=== PATIENT | female | born 1935 | race Caucasian/White ===

== ENCOUNTER 2017-10-06 15:44 | Inpatient (IN) ==
[2017-10-06] MEDS ORDERED: IOPAMIDOL 100 ML BOTTLE IV ONE (15:45)
[2017-10-06 16:38] LABS: Mean Cell Volume 94.6 fL (80.0-100.0); Mean Corpuscular HGB Conc 33.6 g/dL (31.0-36.0); Mean Corpuscular Hemoglobin 31.7 pg (26.0-34.0); Platelet Count 253 K/mcL (140-440); RBC 4.48 M/mcL (4.00-5.20); Red Cell Distribution Width 12.9 % (11.5-14.5)
--- NOTE | 2017-10-06 16:57 | Cat Scan Report ---
CLINICAL INFORMATION: Hyponatremia. Bloated feeling. TECHNIQUE: 80 mL intravenous contrast material injected. Oral contrast material was given. Axial images to the chest, abdomen, pelvis COMPARISON: Chest CT scan dated 05/28/2017 FINDINGS: CHEST: As described previously there are 4 noncalcified pulmonary parenchymal nodules: 5 mm superior segment left lower lobe, image 45 4 mm left upper lobe, image 47 3 mm left lower lobe, image 52 4 mm subpleural right lower lobe, image 64 These nodules are stable. As described previously Fleischner Society recommendations: Low risk patient no follow-up necessary, high risk patient [address] follow-up recommended. Lungs are otherwise negative. There is centrilobular emphysema with upper lobe predominance. Appearance is consistent with smoking history. No other parenchymal mass. No parenchymal consolidation. No pneumonia. No honeycombing or bronchiectasis. There is atherosclerotic disease. There is severe coronary artery calcification. There is calcified atherosclerotic disease in the thoracic aorta. There is calcified plaque in the descending thoracic aorta with mural thrombus. Descending thoracic aorta is ectatic and measures 3.3 cm in maximum cross-sectional diameter. No asymmetry thoracic aortic aneurysm. 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 As passes was steered to the esophagus. No pathologic hilar or mediastinal lymphadenopathy. No axillary adenopathy. No thoracic compression fractures. There is multilevel degenerative disc disease. No sternal or rib fractures. No lytic lesions. ABDOMEN, PELVIS: Severe calcified atherosclerotic disease. There is dilatation of the abdominal aorta. Maximum cross-sectional dimensions are 3.5 x 2.8 cm in the infrarenal abdominal aorta. There is calcified plaque at the origins of the renal arteries, superior mesenteric artery, and celiac trunk. There is probable left renal artery stenosis. There is mild narrowing at the origin of the celiac trunk although this is probably not hemodynamically significant Negative liver. No focal intrahepatic abnormality. Normal spleen and liver contour. No evidence for cirrhosis. No ascites. Gallbladder is present. No calcified gallstones. No intrahepatic bile duct dilatation. Common bile duct measures 6 mm. Pancreas is negative. No pancreatic mass. No peripancreatic abnormality. Negative spleen. No splenomegaly. Normal enhancement of the splenic and portal veins. Negative adrenal glands. Kidneys are negative. No solid or cystic renal mass. No hydronephrosis. No obstructing or nonobstructing calculi. No evidence for pyelonephritis. There are diverticula in the sigmoid colon. No CT evidence for diverticulitis. No pericolonic inflammatory change. No detectable colonic mass. No appendicitis. The stomach is mildly distended and contrast filled. There is no gastric outlet obstruction. There is contrast material throughout the small bowel. No small bowel dilatation. No mechanical small bowel obstruction. Uterus is negative. No detectable uterine mass. No adnexal mass. No free intraperitoneal fluid. No pneumoperitoneum. No intra-abdominal abscess. No pneumatosis. No biliary or portal venous gas. Multilevel degenerative disc disease. Severe degenerative disc narrowing at L1-2, L2-3, L3-4, L5-S1. No lumbar compression fractures. There is mild L5-S1 anterolisthesis secondary to facet arthropathy. No sacral insufficiency fracture. Pelvis and hips are negative IMPRESSION: 1. Small noncalcified pulmonary parenchymal nodules are unchanged since 05/28/2017. As described previously placed or Society recommendations are for a [address] follow up in a high risk patient 2. Severe calcified coronary artery disease. Extensive atherosclerotic disease throughout the aorta. For renal abdominal aortic dilatation with maximum dimensions of 3.5 x 2.8 cm. Incidental note is made of an aberrant right subclavian artery 3. Mildly distended contrast-filled stomach. No gastric outlet obstruction 4. Severe multilevel degenerative disc disease 5. Negative kidneys 6. Diverticulosis. No significant diverticulitis 7. Centrilobular emphysema Interpreted and Authenticated by: Mayur Mulligan 10/06/17
[2017-10-06 17:16] LABS: ALT/SGPT 22 U/l (0-40); Albumin 4.5 gm/dL (3.2-5.2); Albumin/Globulin Ratio 1.5 (1.0-2.3); Alkaline Phosphatase 87 U/L (39-117); Blood Urea Nitrogen 18 mg/dl (8-23)
[2017-10-06 17:21] LABS: Band Neutrophils % 1 % (0-10); Lymphocytes % 21 % (15-49); Monocytes % (Manual) 13 % (1-12); Platelet Estimate NORMAL (NORMAL); RBC Morphology NORMAL (NORMAL); Segmented Neutrophils % 62 % (38-78)
[2017-10-06] MEDS ORDERED: 0.9 % SODIUM CHLORIDE 1,000 ML IV ONE (17:27)
[2017-10-06] MEDS ORDERED: 0.9 % SODIUM CHLORIDE 1,000 ML IV SCH (17:30)
--- NOTE | 2017-10-06 17:30 | Emergency Department Note ---
Weakness HPI - General Chief complaint: Weakness Stated complaint: low sodium, bloated Time Seen by Provider: 10/06/17 15:59 Source: patient, family Mode of arrival: ambulatory Limitations: no limitations - History of Present Illness HPI Narrative: 82-year-old female who was recently treated for UTI on 10/02/2017 with Bactrim. Also has recently started Donepezil for dementia. Since then she has been having some diarrhea. Overall feeling weak and having some stomach cramps as well as some paresthesia bilaterally. She initially then went to Dr. Matthews who is going to order a CT scan of the abdomen and pelvis for her but on getting a Chem-8 was found to have very low sodium and so was sent to the ER. - Related Data Home Medications Medication Instructions Recorded Confirmed clobetasol 0.05 % scalp solution 1 applic TOPICAL BIDP PRN 05/03/15 10/06/17 Flaxseed Oil [Flax Seed Oil] 2,000 mg PO QPMCC 09/12/15 10/06/17 aspirin 81 mg tablet,delayed 81 mg PO QDAY 05/12/17 10/06/17 release latanoprost 0.005 % eye drops 1 drp OPHTHALMIC QDAY 05/12/17 10/06/17 Previous Rx's Medication Instructions Recorded clotrimazole-betamethasone 1 1 applic TOPICAL BID #15 g 07/06/16 %-0.05 % topical cream alprazolam 0.5 mg tablet See Dose Instructions PO .COMPLEX 08/23/17 #60 tab chlorthalidone 25 mg tablet 25 mg PO QDAY #90 tab 08/24/17 irbesartan 300 mg tablet 300 mg PO QDAY #90 tab 08/24/17 donepezil 5 mg tablet 5 mg PO QHS #60 tab 10/06/17 pravastatin 20 mg tablet 20 mg PO QHS #60 tab 10/06/17 Allergies Allergy/AdvReac Type Severity Reaction Status Date / Time Amoxicillin Allergy Unknown Unknown Verified 10/06/17 15:51 ciprofloxacin [From Cipro] AdvReac Mild GI upset Verified 10/06/17 19:18 hydrocodone [From [place]] AdvReac Mild Facial itch Verified 10/06/17 19:18 amlodipine AdvReac Other Verified 10/06/17 15:51 Review of Systems All systems ED: reviewed and negative except as stated. Past Medical History - Past Medical History Attestation: Yes: The following information was validated with the patient. Medical history: Reports: arthritis, coronary artery disease, dementia, hypertension, peripheral artery disease, other (Lung nodules) Surgical history ED: Reports: appendectomy, knee replacement, orthopedic, other (Reverse shoulder), tonsillectomy - Social History smoking status: Former smoker Physical Exam No acute distress resting comfortably able to answer some questions but defers to her daughter for others. Some cognitive deficit noted. Normocephalic atraumatic. Conjunctive are clear sclerae nonicteric. No nasal discharge or congestion. Oropharynx is pink and moist. Neck is supple without lymphadenopathy thyromegaly or carotid bruit. Heart is regular rate and rhythm no murmur appreciated. Lungs clear to auscultation bilaterally without wheezes rales rhonchi or respiratory distress. Abdomen is soft but mildly tender diffusely. Hyperactive bowel sounds. No peritoneal signs or guarding. No pedal edema. +2 radial pulse. Osteoarthritic changes to bilateral hands. Alert Limitations: no limitations Course Vital Signs Temperature 98.0 F 10/06/17 15:45 Pulse Rate 67 10/06/17 15:45 Respiratory Rate 18 10/06/17 15:45 Pulse Oximetry (%) 96 10/06/17 15:45 Temperature 98.5 F 10/07/17 04:00 Pulse Rate 65 10/07/17 04:00 Respiratory Rate 14 10/07/17 04:00 Blood Pressure 107/67 10/07/17 04:00 Pulse Oximetry (%) 97 10/07/17 04:00 Weakness - Lab Data Lab results reviewed: Yes I reviewed the patient's lab results. Result diagrams: 10/07/17 03:54 10/07/17 03:54 Lab Results 10/06/17 10/06/17 10/06/17 Range/Units 16:13 16:13 16:13 WBC 6.7 (4.5-11.0) K/mcL RBC 4.48 (4.00-5.20) M/mcL Hgb 14.2 (12.0-15.0) g/dL Hct 42.4 (36.0-48.0) % MCV 94.6 (80.0-100.0) fL MCH 31.7 (26.0-34.0) pg MCHC 33.6 (31.0-36.0) g/dL RDW 12.9 (11.5-14.5) % Plt Count 253 (140-440) K/mcL MPV 7.8 (7.4-10.4) fL Total Counted 100 Seg Neutrophils % 62 (38-78) % Band Neutrophils % 1 (0-10) % Lymphocytes % 21 (15-49) % Monocytes % (Manual) 13 H (1-12) % Reactive Lymphocytes 3 H (0-2) % Platelet Estimate Normal (NORMAL) RBC Morphology Normal (NORMAL) VBG Lactic Acid 1.5 (0.5-2.2) mmol/L Sodium 116 L* (133-145) mmol/L Potassium 3.8 (3.3-5.1) mmol/L Chloride 76 L (96-108) mmol/L Carbon Dioxide 22 (22-30) mmol/L Anion Gap 18.0 H (8-16) BUN 18 (8-23) mg/dl Creatinine 1.1 (0.6-1.1) mg/dl GFR Calculation 47 Glucose 109 H (70-105) mg/dL Osmolality (280-300) mOSM/kg Calcium 9.8 (8.6-10.4) mg/dl Total Bilirubin 0.6 (0.0-1.0) mg/dL AST 31 (0-37) U/l ALT 22 (0-40) U/l Alkaline Phosphatase 87 (39-117) U/L Total Protein 7.5 (5.9-8.4) gm/dL Albumin 4.5 (3.2-5.2) gm/dL Globulin 3.0 (2.2-3.7) gm/dL Albumin/Globulin Ratio 1.5 (1.0-2.3) TSH (0.27-5.01) uIU/ml Urine Color Urine Appearance Urine pH (5.0-9.0) Ur Specific [place] (1.000-1.035) Urine Protein (NEG) mg/dL Urine Glucose (UA) (NEG) mg/dL Urine Ketones (NEG) mg/dL Urine Occult Blood (<0.03) mg/dL Urine Nitrate (NEG) Urine Bilirubin (NEG) mg/dL Urine Urobilinogen (NEG) mg/dL Ur Leukocyte Esterase (NEG) /uL Urine RBC (0-1) /hpf Urine WBC (0-4) /hpf Ur Squamous Epith Cells (0-4) /hpf Ur Transition Epith Cell (0-2) /hpf Urine Bacteria (0) /hpf Hyaline Casts (0-2) /lpf Urine Mucus (0) /hpf Ur Culture Indicated? Urine Osmolality (80-1000) mOsm/kg Ur Random Sodium mmol/L 10/06/17 10/06/17 10/06/17 Range/Units 16:13 17:10 17:10 WBC (4.5-11.0) K/mcL RBC (4.00-5.20) M/mcL Hgb (12.0-15.0) g/dL Hct (36.0-48.0) % MCV (80.0-100.0) fL MCH (26.0-34.0) pg MCHC (31.0-36.0) g/dL RDW (11.5-14.5) % Plt Count (140-440) K/mcL MPV (7.4-10.4) fL Total Counted Seg Neutrophils % (38-78) % Band Neutrophils % (0-10) % Lymphocytes % (15-49) % Monocytes % (Manual) (1-12) % Reactive Lymphocytes (0-2) % Platelet Estimate (NORMAL) RBC Morphology (NORMAL) VBG Lactic Acid (0.5-2.2) mmol/L Sodium (133-145) mmol/L Potassium (3.3-5.1) mmol/L Chloride (96-108) mmol/L Carbon Dioxide (22-30) mmol/L Anion Gap (8-16) BUN (8-23) mg/dl Creatinine (0.6-1.1) mg/dl GFR Calculation Glucose (70-105) mg/dL Osmolality 246 L (280-300) mOSM/kg Calcium (8.6-10.4) mg/dl Total Bilirubin (0.0-1.0) mg/dL AST (0-37) U/l ALT (0-40) U/l Alkaline Phosphatase (39-117) U/L Total Protein (5.9-8.4) gm/dL Albumin (3.2-5.2) gm/dL Globulin (2.2-3.7) gm/dL Albumin/Globulin Ratio (1.0-2.3) TSH 4.13 (0.27-5.01) uIU/ml Urine Color Yellow Urine Appearance Hazy Urine pH 7.0 (5.0-9.0) Ur Specific [place] 1.033 (1.000-1.035) Urine Protein Neg (NEG) mg/dL Urine Glucose (UA) Negative (NEG) mg/dL Urine Ketones Neg (NEG) mg/dL Urine Occult Blood 0.03 A (<0.03) mg/dL Urine Nitrate Neg (NEG) Urine Bilirubin Neg (NEG) mg/dL Urine Urobilinogen Neg (NEG) mg/dL Ur Leukocyte Esterase 500 A (NEG) /uL Urine RBC 11 H (0-1) /hpf Urine WBC 117 H (0-4) /hpf Ur Squamous Epith Cells 13 H (0-4) /hpf Ur Transition Epith Cell 2 (0-2) /hpf Urine Bacteria 0 (0) /hpf Hyaline Casts 1 (0-2) /lpf Urine Mucus Few (0) /hpf Ur Culture Indicated? No Urine Osmolality 402 (80-1000) mOsm/kg Ur Random Sodium 57 mmol/L - Radiology Data Radiology results reviewed: Yes I reviewed the patient's radiology results. CT scan of the chest abdomen pelvis with contrast shows no acute findings however there are several smaller stable chronic findings. See report for full report for that Disposition Pt seen by PER DIEM REGISTERED NURSE/PA only: No Clinical Impression: Hyponatremia Summary: Found to have significant symptomatic hyponatremia likely from her diuretic however unclear if other medicines helped out in this regard. Patient requires inpatient care to treat this so I discussed the case with Dr. Miguel who agreed to accept patient in transfer. He advised him to start slow normal saline and he would workup as an inpatient Disposition: Xfer As Inpt ([facility]) Condition: Fair
[2017-10-06 17:35] LABS: Appearance,Urine HAZY; Bacteria,Urine 0 /hpf (0); Bilirubin,Urine NEG (NEG); Color,Urine YELLOW; Glucose,Urine (UA) NEGATIVE (NEG); Leukocyte Esterase,Urine 500 /uL (NEG); Mucus,Urine FEW /hpf (0); Protein,Urine NEG (NEG); Specific Gravity,Urine 1.033 (1.000-1.035); Urine Blood 0.03 mg/dL (<0.03); Urine Hyaline Cast 1 /lpf (0-2); Urine RBC 11 /hpf (0-1); Urine Squamous Epithelial Cell 13 /hpf (0-4); Urine Transitional Epi Cells 2 /hpf (0-2); Urine WBC 117 /hpf (0-4); Urobilinogen,Urine NEG (NEG)
--- NOTE | 2017-10-06 18:03 | Internal Med History&Physical ---
Medical - H&P: [facility] Patient information: Note initiated : 10/06/17 at 6:01 pm Service Date, if different from initiated Date: [] Patient: Stephanie Mckeon a 82 y/o F admitted on for low sodium, bloated. Chief Complaint: [] Chief complaint: weakness confusion History of present illness: Ms. Mckeon is a 82 year old F who presents to [facility] ER with symptoms of increasing weakness, lower extremity cramps, headaches, abdominal bloating and confusion which has worsened over the last 24 hours. Patient has been fairly independent living alone. She is frequently visited by her son Ish and daughter eder. Per history patient has progressively gotten weaker over the last few days along with associated lower extremity cramps restricting her ability to perform ADLs. Patient was evaluated on 10/02 at urgent care due to increasing urinary frequency and dysuria. She was discharged on for UTI. Cultures revealed gram-positive cocci. However since discharge her symptoms have persisted with dysuria and increased frequency and associated weakness prompting her to return to ER today. She however denied associated fever cough headache photophobia, chest pain shortness of breath, rash, joint swelling . She has been slightly dizzy and lightheaded. Initial workup revealed sodium 116. Negative CT abdomen and pelvis chest. UA revealed pyuria. Hospitalist service consulted for admission evaluation in light of symptomatically hyponatremia. Review of systems 10 point review of system was performed and is negative except as discussed above Medical - H&P: [facility] Medical history: Medical History (Last Reviewed 08/18/17 @ 14:38 by Evonne Ahmadi RN) Encounter for long-term current use of high risk medication (Acute) Inflammatory osteoarthritis (Chronic) Encounter for Health Maintenance Examination in Adult (Chronic) History of tobacco use (Chronic) Peripheral vascular disease (Chronic) Palpitations (Chronic) Osteoporosis screening (Chronic) Hypertension (Chronic) Herpes zoster (Chronic) Hematuria (Chronic) Glaucoma (Chronic) Dermatitis (Chronic) Situational depression (Chronic) Degenerative arthritis (Chronic) Colon polyps (Chronic) Cerebrovascular disease (Chronic 06/28/14) Carotid bruit (Chronic 01/19/14) Back pain (Chronic) Situational anxiety (Chronic) Surgical history: Past Surgical History (Last Reviewed 08/18/17 @ 14:38 by Evonne Ahmadi RN) H/O colonoscopy (Acute 05/09/07) History of bilateral knee arthroplasty (Chronic) 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) S/P appendectomy (Chronic) S/P tonsillectomy (Chronic) Pertinent family history: Family History (Last Reviewed 08/18/17 @ 14:38 by Evonne Ahmadi RN) Mother Malignant neoplasm of breast Grandmother Malignant neoplasm of breast Sister History of coronary artery stent placement Father Cerebrovascular accident (CVA), Onset Age: 62 Other Hypertension Social history: household members: alone housing: house lives independently: Yes marital status: occupational status: retired smoking status: Former smoker quit date: 05/17/99 pack-years: 30 alcohol intake frequency: 2+ drinks per day substance use type: does not use Medical - H&P: Meds Home Medications Medication Instructions Recorded Confirmed Type clobetasol 0.05 % scalp solution 1 applic TOPICAL BIDP PRN 05/03/15 10/06/17 History Flaxseed Oil [Flax Seed Oil] 2,000 mg PO QPMCC 09/12/15 10/06/17 History clotrimazole-betamethasone 1 1 applic TOPICAL BID #15 g 07/06/16 10/06/17 Rx %-0.05 % topical cream aspirin 81 mg tablet,delayed 81 mg PO QDAY 05/12/17 10/06/17 History release latanoprost 0.005 % eye drops 1 drp OPHTHALMIC QDAY 05/12/17 10/06/17 History alprazolam 0.5 mg tablet See Dose Instructions PO .COMPLEX 08/23/17 10/06/17 Rx #60 tab chlorthalidone 25 mg tablet 25 mg PO QDAY #90 tab 08/24/17 10/06/17 Rx irbesartan 300 mg tablet 300 mg PO QDAY #90 tab 08/24/17 10/06/17 Rx donepezil 5 mg tablet 5 mg PO QHS #60 tab 10/06/17 10/06/17 Rx pravastatin 20 mg tablet 20 mg PO QHS #60 tab 10/06/17 10/06/17 Rx Allergies Allergy/AdvReac Type Severity Reaction Status Date / Time Amoxicillin Allergy Unknown Unknown Verified 10/06/17 15:51 ciprofloxacin [From Cipro] AdvReac Mild GI upset Verified 10/06/17 19:18 hydrocodone [From [place]] AdvReac Mild Facial itch Verified 10/06/17 19:18 amlodipine AdvReac Other Verified 10/06/17 15:51 Medical - H&P: Exam - Constitutional Vitals: Temp Pulse Resp BP Pulse Ox 98.0 F 70 14 165/80 97 10/06/17 15:45 10/06/17 17:13 10/06/17 17:13 10/06/17 17:13 10/06/17 17:13 General appearance: no acute distress Exam: Fatigue lethargic eye movements and symmetric oral cavity dry No ear discharge Neck right-sided carotid bruit S1 and S2 iregular rhythm ESM grade 1 Diminished breath sounds bases Abdomen soft nontender nondistended Lower extremity trace edema no joint swelling and erythema Skin no suspicious lesion Psych lethargic but cooperative No hallucination Neuro nonfocal Medical - H&P: Reslt - Labs CBC & Chem 7: 10/07/17 03:54 10/07/17 03:54 Labs: Short CBC 10/06/17 Range/Units 16:13 WBC 6.7 (4.5-11.0) K/mcL Hgb 14.2 (12.0-15.0) g/dL Hct 42.4 (36.0-48.0) % Plt Count 253 (140-440) K/mcL BMP 10/06/17 16:13 Sodium 116 L* Potassium 3.8 Chloride 76 L Carbon Dioxide 22 BUN 18 Creatinine 1.1 Glucose 109 H Calcium 9.8 Liver Function 10/06/17 Range/Units 16:13 Total Bilirubin 0.6 (0.0-1.0) mg/dL AST 31 (0-37) U/l ALT 22 (0-40) U/l Alkaline Phosphatase 87 (39-117) U/L Albumin 4.5 (3.2-5.2) gm/dL Urine 10/06/17 Range/Units 17:10 Urine Color Yellow Urine Appearance Hazy Urine pH 7.0 (5.0-9.0) Ur Specific [place] 1.033 (1.000-1.035) Urine Protein Neg (NEG) mg/dL Urine Glucose (UA) Negative (NEG) mg/dL Medical - H&P: A/P (1) Hyponatremia with decreased serum osmolality Current visit: Yes Status: Acute 82-year-old admitted with euvolemic hyponatremia * Acute symptomatic hyponatremia-likely secondary to thiazide induced natriuresis. Sodium 116 baseline 135, however rule out SIADH, every 4 hour sodium check, urine serum osmolarity and urine sodium. Start gentle sodium replacement. Check TSH. Admitted to telemetry for seizures/arrhythmia watch * Complicated Urinary tract infection-start antibiotic coverage. Gram-positive cocci on cultures from 10/02 * Acute change in mental status associated weakness secondary to combination of complicated UTI and symptomatic hyponatremia. Inpatient admission and close monitoring * History of dementia continue donepezil * History of glaucoma continue latanoprost * Hypertension continue ARB/chlorthalidone * Anxiety disorder continue alprazolam * Hyperlipidemia on statin * History of PVD/CVA * Full code Plan * Inpatient Telemetry admit * Fluid restriction * Every 4 hour sodium checks * Urine/serum osmolarity/urine sodium * TSH * Antibiotic coverage * If persistent hyponatremia consider discontinuing chlorthalidone
[2017-10-06] MEDS ORDERED: ALPRAZolam 0.5 MG TABLET PO SCH (18:40)
[2017-10-06] MEDS ORDERED: ONDANSETRON 4 MG/2 ML VIAL IV PRN (18:40)
[2017-10-06] MEDS ORDERED: MAGNESIUM SULFATE 2 GM/50 ML BAG IV PRN (18:40)
[2017-10-06] MEDS ORDERED: ACETAMINOPHEN 325 MG TABLET PO PRN (18:40)
[2017-10-06] MEDS ORDERED: POTASSIUM CHLORIDE 20 MEQ PACKET PO PRN (18:40)
[2017-10-06] MEDS ORDERED: CLOBETASOL TOPICAL PRN (18:40)
[2017-10-06] MEDS ORDERED: guaiFENesin/CODEINE 10 ML UDC PO PRN (18:40)
[2017-10-06] MEDS ORDERED: ACETAMINOPHEN 1,000 MG/100 ML BOTTLE IV PRN (18:40)
[2017-10-06 19:17] LABS: Osmolality,Urine 402 mOsm/kg (80-1000)
[2017-10-06] MEDS: 0.9 % SODIUM CHLORIDE 1,000 ML IV SCH (19:46)
[2017-10-06] MEDS: cefTRIAXone 2 GM VIAL IV SCH (19:54)
[2017-10-06] MEDS ORDERED: SODIUM CHLORIDE 1 GM TABLET PO SCH (21:00)
[2017-10-06] MEDS ORDERED: PRAVASTATIN 20 MG TABLET PO SCH (21:00)
[2017-10-06] MEDS: SIMVASTATIN 10 MG TABLET PO SCH (21:17)
[2017-10-06] MEDS: SENNOSIDES/DOCUSATE SODIUM 1 TAB TABLET PO SCH (21:17)
[2017-10-06] MEDS: DOCUSATE SODIUM 100 MG CAPSULE PO SCH (21:17)
[2017-10-06] MEDS: DONEPEZIL 10 MG TABLET PO SCH (21:18)
[2017-10-06] MEDS: HEPARIN 5,000 UNIT/ML VIAL SQ SCH (21:18)
[2017-10-06] MEDS: 0.9 % SODIUM CHLORIDE 10 ML SYRINGE IV SCH (21:18)
[2017-10-06] MEDS: traZODone HCL 50 MG TABLET PO PRN (22:29)
[2017-10-07 05:30] LABS: Mean Cell Volume 94.9 fL (80.0-100.0); Mean Corpuscular HGB Conc 33.7 g/dL (31.0-36.0); Platelet Count 218 K/mcL (140-440); RBC 3.78 M/mcL (4.00-5.20)
[2017-10-07] MEDS: 0.9 % SODIUM CHLORIDE 10 ML SYRINGE IV SCH ×3 (05:40→21:46)
[2017-10-07 06:44] LABS: ALT/SGPT 17 U/l (0-40); Albumin 3.7 gm/dL (3.2-5.2); Albumin/Globulin Ratio 1.5 (1.0-2.3); Alkaline Phosphatase 68 U/L (39-117); Bilirubin,Direct < 0.2 mg/dL (0.0-0.3); Blood Urea Nitrogen 13 mg/dl (8-23); Gamma Glutamyl Transpeptidase 19 U/L (5-36); Uric Acid 2.6 mg/dL (2.5-8.0)
[2017-10-07] MEDS: 0.9 % SODIUM CHLORIDE 1,000 ML IV SCH ×2 (07:00→20:16)
[2017-10-07 07:34] LABS: Eosinophils % (Manual) 1 % (0-7); Lymphocytes % 38 % (15-49); Monocytes % (Manual) 6 % (1-12); Platelet Estimate NORMAL (NORMAL); RBC Morphology NORMAL (NORMAL); Segmented Neutrophils % 55 % (38-78)
[2017-10-07] MEDS ORDERED: IRBESARTAN 300 MG TABLET PO SCH (09:00)
[2017-10-07] MEDS ORDERED: FUROSEMIDE 20 MG/2 ML VIAL IV SCH (09:00)
[2017-10-07] MEDS ORDERED: CHLORTHALIDONE 25 MG TABLET PO SCH (09:00)
[2017-10-07] MEDS: cefTRIAXone 2 GM VIAL IV SCH (09:33)
[2017-10-07] MEDS: ASPIRIN 81 MG TAB.CHEW PO SCH (09:34)
[2017-10-07] MEDS: MULTIVIT,THER IRON,CA,FA & MIN 1 TABLET PO SCH (09:34)
[2017-10-07] MEDS: SODIUM CHLORIDE 1 GM TABLET PO SCH ×3 (09:34→21:34)
[2017-10-07] MEDS: HEPARIN 5,000 UNIT/ML VIAL SQ SCH ×2 (09:34→21:13)
[2017-10-07] MEDS: LOSARTAN 50 MG TABLET PO SCH (09:34)
[2017-10-07] MEDS: LATANOPROST OPHTH DROPS 2.5ML BOTTLE OU SCH (09:36)
[2017-10-07] MEDS: DOCUSATE SODIUM 100 MG CAPSULE PO SCH ×2 (09:37→21:35)
--- NOTE | 2017-10-07 10:08 | Internal Med Progress Note ---
Medical - PN: Subj Patient information: Note initiated : 10/07/17 at 10:05 am Service Date, if different from initiated Date: [] Patient: Stephanie Mckeon a 82 y/o F admitted on 10/06/17 for low sodium, bloated. Chief Complaint: [] Interval history: Ms. Mckeon is a 82 year old F who presents to [facility] ER with symptoms of increasing weakness, lower extremity cramps, headaches, abdominal bloating and confusion which has worsened over the last 24 hours. Patient has been fairly independent living alone. She is frequently visited by her son Ish and daughter eder. Per history patient has progressively gotten weaker over the last few days along with associated lower extremity cramps restricting her ability to perform ADLs. Patient was evaluated on 10/02 at urgent care due to increasing urinary frequency and dysuria. She was discharged on for UTI. Cultures revealed gram-positive cocci. However since discharge her symptoms have persisted with dysuria and increased frequency and associated weakness prompting her to return to ER today. She however denied associated fever cough headache photophobia, chest pain shortness of breath, rash, joint swelling . She has been slightly dizzy and lightheaded. Initial workup revealed sodium 116. Negative CT abdomen and pelvis chest. UA revealed pyuria. Hospitalist service consulted for admission evaluation in light of symptomatically hyponatremia. 10/07- patient doing well. No overnight events. No concerns per staff. Sodium at 116. Urine osmolarity greater than serum osmolarity suggestive of SIADH. Continue free water restriction/genital sodium replacement along with gentle diuresis. Sodium levels should correct over the next 6 hours with above measures. Negative CT abdomen chest pelvis for occult malignancy. Urinary outflow obstruction. Foleys catheter placed with over 1000 cc output. Will require outpatient urology follow-up to rule out urethral prolapse and outlet obstruction. No family at bedside. No overnight telemetry events. Continue 4 hourly sodium checks - Constitutional Vitals: Vital Signs Temp Pulse Resp BP Pulse Ox 98.5 F 65 14 107/67 97 10/07/17 04:00 10/07/17 04:00 10/07/17 04:00 10/07/17 04:00 10/07/17 04:00 Period Temp Pulse Resp BP Sys/Douglas Pulse Ox Last 24 Hr 97.6 F-98.5 F 64-74 14-18 90-194/57-90 95-100 Intake and Output 10/06/17 10/07/17 10/07/17 21:59 05:59 13:59 Intake Total 1000 / 1000 600 / 600 Output Total 50 / 50 1000 / 1000 Balance 950 / 950 -400 / -400 Weight 157 lb 9 oz Intake & Output: Intake & Output 10/06/17 10/07/17 10/07/17 21:59 05:59 13:59 Intake Total 1000 / 1000 600 / 600 Output Total 50 / 50 1000 / 1000 Balance 950 / 950 -400 / -400 Weight 157 lb 9 oz Intake: IV 1000 / 1000 Sodium Chloride 0.9% 1,000 ml @ 1000 / 1000 Wide Open IV BOLUS ONE Rx#: [id number] Oral 600 / 600 Output: Urine Catheter Amount 1000 / 1000 Void Amount 50 / 50 Other: # Bowel Movements 0 General appearance: average body habitus, no acute distress Exam: Alert oriented nonlabored breathing No lymphedema Chest clear to auscultation Foleys draining clear urine Medical - PN: Obj Da - Labs CBC & Chem 7: 10/07/17 03:54 10/07/17 03:54 Labs: Abnormal Lab Results 10/07/17 10/07/17 10/07/17 03:54 03:54 00:16 RBC 3.78 L Hct 35.9 L Monocytes % (Manual) Reactive Lymphocytes Sodium 116 L* 115 L* Chloride 80 L Anion Gap Glucose Osmolality Calcium 8.4 L Urine Occult Blood Ur Leukocyte Esterase Urine RBC Urine WBC Ur Squamous Epith Cells 10/06/17 10/06/17 10/06/17 20:00 17:10 16:13 RBC Hct Monocytes % (Manual) Reactive Lymphocytes Sodium 115 L* Chloride Anion Gap Glucose Osmolality 246 L Calcium Urine Occult Blood 0.03 A Ur Leukocyte Esterase 500 A Urine RBC 11 H Urine WBC 117 H Ur Squamous Epith Cells 13 H 10/06/17 10/06/17 16:13 16:13 RBC Hct Monocytes % (Manual) 13 H Reactive Lymphocytes 3 H Sodium 116 L* Chloride 76 L Anion Gap 18.0 H Glucose 109 H Osmolality Calcium Urine Occult Blood Ur Leukocyte Esterase Urine RBC Urine WBC Ur Squamous Epith Cells Meds: Medications Acetaminophen (Tylenol) 650 mg PO Q4-6HP PRN PRN Reason: PAIN/FEVER > 101 Alprazolam (Xanax) 1 mg PO .COMPLEX [facility]WIN Last Admin: 10/06/17 21:17 Dose: 1 mg Aspirin (Aspirin) 81 mg PO DAILY [facility] Last Admin: 10/07/17 09:34 Dose: 81 mg Ceftriaxone Sodium (Rocephin) 2 gm IV Q24H [facility] Last Admin: 10/07/17 09:33 Dose: 2 gm Chlorthalidone (Hygroton) 25 mg PO QDAY [facility] Docusate Sodium (Colace) 100 mg PO BID [facility] Last Admin: 10/07/17 09:37 Dose: 100 mg Donepezil HCl (Aricept) 5 mg PO QHS [facility] Last Admin: 10/06/17 21:18 Dose: 5 mg Furosemide (Lasix) 20 mg IV DAILY [facility] Last Admin: 10/07/17 09:33 Dose: 20 mg Guaifenesin/Codeine Phosphate (Robitussin Ac) 10 ml PO Q4HP PRN PRN Reason: Cough Heparin Sodium (Porcine) (Heparin) 5,000 unit SQ Q12 [facility] Last Admin: 10/07/17 09:34 Dose: 5,000 unit Sodium Chloride (Sodium Chloride 0.9%) 1,000 mls @ 50 mls/hr IV .Q20H [facility] Last Admin: 10/07/17 07:00 Dose: 50 mls/hr Magnesium Sulfate (Magnesium Sulfate) 2 gm in 50 mls @ 50 mls/hr IV UD PRN PRN Reason: MG = or < 1.7 Acetaminophen (Ofirmev) 1,000 mg in 100 mls @ 200 mls/hr IV Q6HP PRN PRN Reason: PAIN/FEVER > 101 Iron Carb/Multivit/[place]/Folic Acid (Multivitamin W/Minerals) 1 tab PO DAILY [facility] Last Admin: 10/07/17 09:34 Dose: 1 tab Latanoprost (Xalatan Ophth Drops) 1 gtt OU QDAY [facility] Last Admin: 10/07/17 09:36 Dose: Not Given Losartan Potassium (Cozaar) 100 mg PO DAILY [facility] Last Admin: 10/07/17 09:34 Dose: 100 mg Ondansetron HCl (Zofran) 4 mg IV Q4-6HP PRN PRN Reason: Nausea And Vomiting Lobetasol Propionate ([Cormax] Crm) 1 dose TOPICAL BIDP PRN PRN Reason: ITCHY Potassium Chloride (Klor-Con) 40 meq PO DAILYP PRN PRN Reason: K+ < 3.5 Last Admin: 10/07/17 09:33 Dose: 40 meq Senna/Docusate Sodium (Senna Plus Tablet) 1 tab PO HS [facility] Last Admin: 10/06/17 21:17 Dose: 1 tab Simvastatin (Zocor) 10 mg PO HS [facility] Last Admin: 10/06/17 21:17 Dose: 10 mg Sodium Chloride (Saline Flush) 10 ml IV Q8 [facility] Last Admin: 10/07/17 05:40 Dose: Not Given Sodium Chloride (Sodium Chloride) 1 gm PO TID [facility] Last Admin: 10/07/17 09:34 Dose: 1 gm Trazodone HCl (Desyrel) 50 mg PO HSP PRN PRN Reason: Insomnia Last Admin: 10/06/17 22:29 Dose: 50 mg Medical - PN: A/P - Time Spent With Patient Total time spent is greater than 50% in coordination of care (as documented) at patient's floor/unit and/or counseling patient: 25 - 35 minutes (1) Hyponatremia with decreased serum osmolality Status: Acute Assessment and plan: 82-year-old admitted with euvolemic hyponatremia * 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 Continue 4 hour sodium checks/Freewater restriction/salt tabs/diuresis . Hold chlorthalidone * Complicated UTI -continue Rocephin. GPC on culture * Acute change in mental status associated weakness secondary to combination of above - clinically improved * History of dementia continue donepezil * History of glaucoma continue latanoprost * Hypertension continue ARB/hold chlorthalidone * Anxiety disorder continue alprazolam * Hyperlipidemia on statin * History of PVD/CVA * Full code Plan * DC chlorthalidone * Freewater restriction less than 32 ounce 24 hour * Continue 4 hour sodium checks * Antibiotic coverage Current Visit: Yes Medical - PN: Qual - VTE Deep Vein Thrombosis/Pulmonary Embolism Present on Admission: No
[2017-10-07] MEDS ORDERED: ASPIRIN 81 MG TAB.CHEW CHEWED ONE (19:50)
[2017-10-07] MEDS ORDERED: ASPIRIN 81 MG TAB.CHEW ONE (19:59)
[2017-10-07 20:58] LABS: Creatine Kinase MB 5.2 ng/ml (0-2.9)
[2017-10-07 20:59] LABS: ALT/SGPT 17 U/l (0-40); Albumin 3.7 gm/dL (3.2-5.2); Albumin/Globulin Ratio 1.6 (1.0-2.3); Alkaline Phosphatase 72 U/L (39-117); Bilirubin,Direct < 0.2 mg/dL (0.0-0.3); Blood Urea Nitrogen 16 mg/dl (8-23); Gamma Glutamyl Transpeptidase 19 U/L (5-36); Uric Acid 3.6 mg/dL (2.5-8.0)
[2017-10-07 21:00] LABS: Creatine Kinase 165 IU/L (24-170)
[2017-10-07] MEDS: DONEPEZIL 10 MG TABLET PO SCH (21:34)
[2017-10-07] MEDS: SENNOSIDES/DOCUSATE SODIUM 1 TAB TABLET PO SCH (21:35)
[2017-10-07] MEDS: SIMVASTATIN 10 MG TABLET PO SCH (21:35)
[2017-10-08 06:12] LABS: ALT/SGPT 16 U/l (0-40); Albumin 3.9 gm/dL (3.2-5.2); Albumin/Globulin Ratio 1.6 (1.0-2.3); Alkaline Phosphatase 74 U/L (39-117); Bilirubin,Direct < 0.2 mg/dL (0.0-0.3); Blood Urea Nitrogen 16 mg/dl (8-23); Gamma Glutamyl Transpeptidase 22 U/L (5-36); Uric Acid 3.5 mg/dL (2.5-8.0)
[2017-10-08 06:13] LABS: Mean Cell Volume 94.9 fL (80.0-100.0); Mean Corpuscular HGB Conc 33.3 g/dL (31.0-36.0); Mean Corpuscular Hemoglobin 31.6 pg (26.0-34.0); Platelet Count 207 K/mcL (140-440); RBC 3.98 M/mcL (4.00-5.20); Red Cell Distribution Width 12.8 % (11.5-14.5)
[2017-10-08] MEDS: 0.9 % SODIUM CHLORIDE 10 ML SYRINGE IV SCH ×3 (06:30→21:46)
[2017-10-08 06:39] LABS: Band Neutrophils % 1 % (0-10); Basophils % (Manual) 1 % (0-2); Eosinophils % (Manual) 2 % (0-7); Lymphocytes % 33 % (15-49); Monocytes % (Manual) 8 % (1-12); Platelet Estimate NORMAL (NORMAL); RBC Morphology NORMAL (NORMAL); Segmented Neutrophils % 55 % (38-78); Toxic Granulation 1+ (NONE SEEN)
--- NOTE | 2017-10-08 07:24 | Internal Med Progress Note ---
Medical - PN: Subj Patient information: Note initiated : 10/08/17 at 7:22 am Service Date, if different from initiated Date: [] Patient: Stephanie Mckeon a 82 y/o F admitted on 10/06/17 for Low Sodium, Bloated/ Euvolemic Hyponatremia. Chief Complaint: [] Interval history: Ms. Mckeon is a 82 year old F who presents to [facility] ER with symptoms of increasing weakness, lower extremity cramps, headaches, abdominal bloating and confusion which has worsened over the last 24 hours. Patient has been fairly independent living alone. She is frequently visited by her son Ish and daughter eder. Per history patient has progressively gotten weaker over the last few days along with associated lower extremity cramps restricting her ability to perform ADLs. Patient was evaluated on 10/02 at urgent care due to increasing urinary frequency and dysuria. She was discharged on for UTI. Cultures revealed gram-positive cocci. However since discharge her symptoms have persisted with dysuria and increased frequency and associated weakness prompting her to return to ER today. She however denied associated fever cough headache photophobia, chest pain shortness of breath, rash, joint swelling . She has been slightly dizzy and lightheaded. Initial workup revealed sodium 116. Negative CT abdomen and pelvis chest. UA revealed pyuria. Hospitalist service consulted for admission evaluation in light of symptomatically hyponatremia. 10/07- patient doing well. No overnight events. No concerns per staff. Sodium at 116. Urine osmolarity greater than serum osmolarity suggestive of SIADH. Continue free water restriction/genital sodium replacement along with gentle diuresis. Sodium levels should correct over the next 6 hours with above measures. Negative CT abdomen chest pelvis for occult malignancy. Urinary outflow obstruction. Foleys catheter placed with over 1000 cc output. Will require outpatient urology follow-up to rule out urethral prolapse and outlet obstruction. No family at bedside. No overnight telemetry events. Continue 4 hourly sodium checks Patient had a brief episode of syncope. Likely vasovagal. Cardiac enzymes negative. EKG ST changes V2 V3, but on review with cardiology prior EKG 2016 and had similar changes. 10/08-patient doing better. Sodium up to 127. Continue free water restriction. 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 Transfer to medical floor. Possible discharge once sodium over 130 in 24 hours. Continue chlorthalidone on hold. Consider discontinuation to prevent future episodes of hyponatremia. No overnight fever chills. No family at bedside. No concerns per staff. No telemetry events except for intermittent PVCs - Constitutional Vitals: Vital Signs Temp Pulse Resp BP Pulse Ox 98.0 F 71 20 129/79 94 10/08/17 04:01 10/07/17 16:01 10/08/17 04:01 10/08/17 04:01 10/08/17 04:01 Period Temp Pulse Resp BP Sys/Douglas Pulse Ox Last 24 Hr 97.6 F-98.0 F 71 12-20 84-129/56-82 94-98 Intake and Output 10/07/17 10/08/17 10/08/17 21:59 05:59 13:59 Intake Total 699 / 699 Output Total 1425 / 1425 1300 / 1300 Balance -726 / -726 -1300 / -1300 Weight 154 lb 12.8 oz Intake & Output: Intake & Output 10/07/17 10/08/17 10/08/17 21:59 05:59 13:59 Intake Total 699 / 699 Output Total 1425 / 1425 1300 / 1300 Balance -726 / -726 -1300 / -1300 Weight 154 lb 12.8 oz Intake: IV 381 / 381 Sodium Chloride 0.9% 1,000 ml @ 381 / 381 50 mls/hr IV .Q20H [facility] Rx#: [id number] Oral 318 / 318 Output: Urine Catheter Amount 1425 / 1425 1300 / 1300 Other: Meal Dinner Percent of Meal Consumed 50% General appearance: no acute distress Exam: Alert oriented nonlabored breathing No anxiety No telemetry events noted lymphedema Medical - PN: Obj Da - Labs CBC & Chem 7: 10/08/17 03:53 10/08/17 03:53 Labs: Abnormal Lab Results 10/08/17 10/08/17 10/08/17 03:53 03:53 00:14 RBC 3.98 L Hct Monocytes % (Manual) WBC Morphology Abnorm A Reactive Lymphocytes Toxic Granulation 1+ A Sodium 127 L 124 L Chloride 90 L Anion Gap Glucose Osmolality Calcium 8.5 L CK-MB (CK-2) Urine Occult Blood Ur Leukocyte Esterase Urine RBC Urine WBC Ur Squamous Epith Cells 10/07/17 10/07/17 10/07/17 19:49 19:49 16:00 RBC Hct Monocytes % (Manual) WBC Morphology Reactive Lymphocytes Toxic Granulation Sodium 122 L 120 L Chloride 86 L Anion Gap Glucose 107 H Osmolality Calcium 8.4 L CK-MB (CK-2) 5.2 H Urine Occult Blood Ur Leukocyte Esterase Urine RBC Urine WBC Ur Squamous Epith Cells 10/07/17 10/07/17 10/07/17 12:19 08:02 03:54 RBC Hct Monocytes % (Manual) WBC Morphology Reactive Lymphocytes Toxic Granulation Sodium 118 L* 120 L 116 L* Chloride 80 L Anion Gap Glucose Osmolality Calcium 8.4 L CK-MB (CK-2) Urine Occult Blood Ur Leukocyte Esterase Urine RBC Urine WBC Ur Squamous Epith Cells 10/07/17 10/07/17 10/06/17 03:54 00:16 20:00 RBC 3.78 L Hct 35.9 L Monocytes % (Manual) WBC Morphology Reactive Lymphocytes Toxic Granulation Sodium 115 L* 115 L* Chloride Anion Gap Glucose Osmolality Calcium CK-MB (CK-2) Urine Occult Blood Ur Leukocyte Esterase Urine RBC Urine WBC Ur Squamous Epith Cells 10/06/17 10/06/17 10/06/17 17:10 16:13 16:13 RBC Hct Monocytes % (Manual) WBC Morphology Reactive Lymphocytes Toxic Granulation Sodium 116 L* Chloride 76 L Anion Gap 18.0 H Glucose 109 H Osmolality 246 L Calcium CK-MB (CK-2) Urine Occult Blood 0.03 A Ur Leukocyte Esterase 500 A Urine RBC 11 H Urine WBC 117 H Ur Squamous Epith Cells 13 H 10/06/17 16:13 RBC Hct Monocytes % (Manual) 13 H WBC Morphology Reactive Lymphocytes 3 H Toxic Granulation Sodium Chloride Anion Gap Glucose Osmolality Calcium CK-MB (CK-2) Urine Occult Blood Ur Leukocyte Esterase Urine RBC Urine WBC Ur Squamous Epith Cells Meds: Medications Acetaminophen (Tylenol) 650 mg PO Q4-6HP PRN PRN Reason: PAIN/FEVER > 101 Last Admin: 10/07/17 11:59 Dose: 650 mg Alprazolam (Xanax) 1 mg PO .COMPLEX [facility] Last Admin: 10/06/17 21:17 Dose: 1 mg Aspirin (Aspirin) 81 mg PO DAILY [facility] Last Admin: 10/07/17 09:34 Dose: 81 mg Ceftriaxone Sodium (Rocephin) 2 gm IV Q24H [facility] Last Admin: 10/07/17 09:33 Dose: 2 gm Docusate Sodium (Colace) 100 mg PO BID [facility] Last Admin: 10/07/17 21:35 Dose: 100 mg Donepezil HCl (Aricept) 5 mg PO QHS [facility] Last Admin: 10/07/17 21:34 Dose: 5 mg Guaifenesin/Codeine Phosphate (Robitussin Ac) 10 ml PO Q4HP PRN PRN Reason: Cough Heparin Sodium (Porcine) (Heparin) 5,000 unit SQ Q12 [facility] Last Admin: 10/07/17 21:13 Dose: Not Given Magnesium Sulfate (Magnesium Sulfate) 2 gm in 50 mls @ 50 mls/hr IV UD PRN PRN Reason: MG = or < 1.7 Last Infusion: 10/07/17 11:47 Dose: Infused Acetaminophen (Ofirmev) 1,000 mg in 100 mls @ 200 mls/hr IV Q6HP PRN PRN Reason: PAIN/FEVER > 101 Sodium Chloride (Sodium Chloride 0.9%) 1,000 mls @ 30 mls/hr IV .Q24H [facility] Last Admin: 10/07/17 20:16 Dose: Not Given Iron Carb/Multivit/[place]/Folic Acid (Multivitamin W/Minerals) 1 tab PO DAILY [facility] Last Admin: 10/07/17 09:34 Dose: 1 tab Latanoprost (Xalatan Ophth Drops) 1 gtt OU QDAY [facility] Last Admin: 10/07/17 09:36 Dose: Not Given Losartan Potassium (Cozaar) 100 mg PO DAILY [facility] Last Admin: 10/07/17 09:34 Dose: 100 mg Ondansetron HCl (Zofran) 4 mg IV Q4-6HP PRN PRN Reason: Nausea And Vomiting Last Admin: 10/07/17 15:15 Dose: 4 mg Lobetasol Propionate ([Cormax] Crm) 1 dose TOPICAL BIDP PRN PRN Reason: ITCHY Potassium Chloride (Klor-Con) 40 meq PO DAILYP PRN PRN Reason: K+ < 3.5 Last Admin: 10/07/17 09:33 Dose: 40 meq Senna/Docusate Sodium (Senna Plus Tablet) 1 tab PO HS [facility] Last Admin: 10/07/17 21:35 Dose: 1 tab Simvastatin (Zocor) 10 mg PO HS [facility] Last Admin: 10/07/17 21:35 Dose: 10 mg Sodium Chloride (Saline Flush) 10 ml IV Q8 [facility] Last Admin: 10/07/17 21:46 Dose: Not Given Sodium Chloride (Sodium Chloride) 1 gm PO TID [facility] Last Admin: 10/07/17 21:34 Dose: 1 gm Trazodone HCl (Desyrel) 50 mg PO HSP PRN PRN Reason: Insomnia Last Admin: 10/06/17 22:29 Dose: 50 mg Medical - PN: A/P - Time Spent With Patient Total time spent is greater than 50% in coordination of care (as documented) at patient's floor/unit and/or counseling patient: 15 - 24 minutes (1) Hyponatremia with decreased serum osmolality Status: Acute Assessment and plan: 82-year-old admitted with euvolemic hyponatremia * 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 Urine osm 400. Sodium 127 up from 116. Rise at goal. Continue Freewater restriction/salt tabs/and sodium checks. Continue holding chlorthalidone * Complicated UTI -continue Rocephin. GPC on culture 10/02 * Acute change in mental status -clinically back to baseline * History of dementia continue donepezil * History of glaucoma continue latanoprost * Hypertension continue ARB/hold chlorthalidone * Anxiety disorder continue alprazolam * Hyperlipidemia on statin * History of PVD/CVA * Full code Plan * Sodium checks * Continue free water restriction less than 1000 cc/24 hours * Continue sodium checks * Antibiotic coverage for additional 3 days Current Visit: Yes Medical - PN: Qual - VTE Deep Vein Thrombosis/Pulmonary Embolism Present on Admission: No
[2017-10-08] MEDS ORDERED: ENOXAPARIN 80 MG/0.8 ML SYRINGE SQ SCH (09:00)
[2017-10-08] MEDS: LOSARTAN 50 MG TABLET PO SCH (10:19)
[2017-10-08] MEDS: DOCUSATE SODIUM 100 MG CAPSULE PO SCH ×2 (10:19→19:58)
[2017-10-08] MEDS: MULTIVIT,THER IRON,CA,FA & MIN 1 TABLET PO SCH (10:19)
[2017-10-08] MEDS: cefTRIAXone 2 GM VIAL IV SCH (10:19)
[2017-10-08] MEDS: SODIUM CHLORIDE 1 GM TABLET PO SCH ×4 (10:19→19:57)
[2017-10-08] MEDS: ASPIRIN 81 MG TAB.CHEW PO SCH (10:19)
[2017-10-08] MEDS: HEPARIN 5,000 UNIT/ML VIAL SQ SCH ×2 (10:19→19:56)
[2017-10-08] MEDS: LATANOPROST OPHTH DROPS 2.5ML BOTTLE OU SCH (10:21)
[2017-10-08] MEDS: 0.9 % SODIUM CHLORIDE 1,000 ML IV SCH (11:30)
[2017-10-08] MEDS ORDERED: [UNRECOGNIZED DRUG - OTHER] BOTH EYES PRN (14:02)
[2017-10-08] MEDS ORDERED: BAUSCH BOTH EYES PRN (14:02)
[2017-10-08] MEDS: traZODone HCL 50 MG TABLET PO PRN (19:51)
[2017-10-08] MEDS: SIMVASTATIN 10 MG TABLET PO SCH ×2 (19:52→19:56)
[2017-10-08] MEDS: DONEPEZIL 10 MG TABLET PO SCH (19:52)
[2017-10-08] MEDS: SENNOSIDES/DOCUSATE SODIUM 1 TAB TABLET PO SCH (19:58)
[2017-10-08] MEDS ORDERED: LATANOPROST OPHTH DROPS 2.5ML BOTTLE OU SCH (21:00)
[2017-10-09 06:47] LABS: Mean Cell Volume 96.1 fL (80.0-100.0); Mean Corpuscular HGB Conc 33.3 g/dL (31.0-36.0); Mean Corpuscular Hemoglobin 31.9 pg (26.0-34.0); Platelet Count 213 K/mcL (140-440); RBC 3.99 M/mcL (4.00-5.20)
[2017-10-09 07:21] LABS: ALT/SGPT 18 U/l (0-40); Albumin 3.9 gm/dL (3.2-5.2); Albumin/Globulin Ratio 1.6 (1.0-2.3); Alkaline Phosphatase 81 U/L (39-117); Bilirubin,Direct < 0.2 mg/dL (0.0-0.3); Blood Urea Nitrogen 12 mg/dl (8-23); Gamma Glutamyl Transpeptidase 21 U/L (5-36); Uric Acid 3.6 mg/dL (2.5-8.0)
[2017-10-09 09:04] LABS: Basophils % (Manual) 1 % (0-2); Lymphocytes % 26 % (15-49); Monocytes % (Manual) 4 % (1-12); Platelet Estimate NORMAL (NORMAL); RBC Morphology NORMAL (NORMAL); Segmented Neutrophils % 69 % (38-78)
[2017-10-09] MEDS: DOCUSATE SODIUM 100 MG CAPSULE PO SCH ×2 (09:31→21:55)
[2017-10-09] MEDS: SODIUM CHLORIDE 1 GM TABLET PO SCH (09:46)
[2017-10-09] MEDS: cefTRIAXone 2 GM VIAL IV SCH (09:46)
[2017-10-09] MEDS: LOSARTAN 50 MG TABLET PO SCH (09:46)
[2017-10-09] MEDS: MULTIVIT,THER IRON,CA,FA & MIN 1 TABLET PO SCH (09:46)
[2017-10-09] MEDS: HEPARIN 5,000 UNIT/ML VIAL SQ SCH ×2 (09:46→21:55)
[2017-10-09] MEDS: ASPIRIN 81 MG TAB.CHEW PO SCH (09:46)
--- NOTE | 2017-10-09 12:23 | Internal Med Progress Note ---
Medical - PN: Subj Patient information: Note initiated : 10/09/17 at 12:17 pm Patient: Stephanie Mckeon a 82 y/o F admitted on 10/06/17 for Low Sodium, Bloated/ Euvolemic Hyponatremia; has responded to treatment with oral salt tablets and fluid restriction. Also held thiazide diuretic. Interval history: REVIEWED DR. KAPLAN's NOTE: Ms. Mckeon is a 82 year old F who presents to [facility] ER with symptoms of increasing weakness, lower extremity cramps, headaches, abdominal bloating and confusion which has worsened over the last 24 hours. Patient has been fairly independent living alone. She is frequently visited by her son Ish and daughter eder. Per history patient has progressively gotten weaker over the last few days along with associated lower extremity cramps restricting her ability to perform ADLs. Patient was evaluated on 10/02 at urgent care due to increasing urinary frequency and dysuria. She was discharged on for UTI. Cultures revealed gram-positive cocci. However since discharge her symptoms have persisted with dysuria and increased frequency and associated weakness prompting her to return to ER today. She however denied associated fever cough headache photophobia, chest pain shortness of breath, rash, joint swelling . She has been slightly dizzy and lightheaded. Initial workup revealed sodium 116. Negative CT abdomen and pelvis chest. UA revealed pyuria. Hospitalist service consulted for admission evaluation in light of symptomatically hyponatremia. 10/07- patient doing well. No overnight events. No concerns per staff. Sodium at 116. Urine osmolarity greater than serum osmolarity suggestive of SIADH. Continue free water restriction/genital sodium replacement along with gentle diuresis. Sodium levels should correct over the next 6 hours with above measures. Negative CT abdomen chest pelvis for occult malignancy. Urinary outflow obstruction. Foleys catheter placed with over 1000 cc output. Will require outpatient urology follow-up to rule out urethral prolapse and outlet obstruction. No family at bedside. No overnight telemetry events. Continue 4 hourly sodium checks Patient had a brief episode of syncope. Likely vasovagal. Cardiac enzymes negative. EKG ST changes V2 V3, but on review with cardiology prior EKG 2016 and had similar changes. 10/08-patient doing better. Sodium up to 127. Continue free water restriction. 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 Transfer to medical floor. Possible discharge once sodium over 130 in 24 hours. Continue chlorthalidone on hold. Consider discontinuation to prevent future episodes of hyponatremia. No overnight fever chills. No family at bedside. No concerns per staff. No telemetry events except for intermittent PVCs 10/09: Although labwork has improved (sodium is now 133), and vital signs have been stable, she has become more angry. Although not outwardly belligerent, she has refused breakfast or to get out of bed. Family has expressed concerns about her ability to care for herself at home. Patient tells me that she still drives, that she has some help managing her checkbook. She also tells me that she does all her own shopping and cooking. She is able to list most of her medications from memory (but will say "the water pill" instead of chlorthalidone ) - however, I am not sure if this level of independence is accurate. This represents a change in behavior from yesterday, and nurses reflect that as well. Subsequently, patient did improve somewhat, was up ambulating with the walker, ate without a problem. Would like to watch overnight before discharge; will decrease sodium tablets, recheck labs in AM, work with case management. - Constitutional Vitals: Vital Signs Temp Pulse Resp BP Pulse Ox 98.0 F 71 18 141/90 95 10/09/17 04:20 10/08/17 16:00 10/09/17 04:20 10/09/17 04:20 10/09/17 04:20 Period Temp Pulse Resp BP Sys/Douglas Pulse Ox Last 24 Hr 97.6 F-98.0 F 71 16-20 122-141/67-90 93-100 Intake and Output 10/08/17 10/09/17 10/09/17 21:59 05:59 13:59 Intake Total 480 / 480 Output Total 825 / 825 950 / 950 Balance -345 / -345 -950 / -950 Weight 154 lb 12.8 oz Intake & Output: Intake & Output 10/08/17 10/09/17 10/09/17 21:59 05:59 13:59 Intake Total 480 / 480 Output Total 825 / 825 950 / 950 Balance -345 / -345 -950 / -950 Weight 154 lb 12.8 oz Intake: Oral 480 / 480 Output: Urine Catheter Amount 825 / 825 950 / 950 Other: Meal Dinner Percent of Meal Consumed 100% Feeding Ability Assist with Tray Set Up Stool Size Copious Moderate Stool Color Brown Brown Stool Consistency Soft Loose # Bowel Movements 1 # of times incontinent of 1 Bowels General appearance: average body habitus, no acute distress Exam: Uncooperative when first seen this AM. Improved several hours later. - Eye Additional comments: No icterus, no nystagmus; poor eye contact. - Neck Additional comments: Supple, no masses, trachea midline, no JVD, no bruits. - Respiratory Additional comments: Clear bilaterally to the bases. - Cardiovascular Additional comments: regular rate and rhythm, no murmurs. - GI/Abdominal Additional comments: Non-distended, soft, non-tender. No organomegaly. - Extremities Exam Additional comments: No edema. - Neurological Exam Additional comments: For date, identifies 08 October (it is the , but she has been in hospital with hyponatremia); vehicle refinisher strength quite strong and equal. Observed walking with walker rapidly and stably down the hallway. - Psychiatric Additional comments: Mood somewhat angry this morning. Follows some directions, answers some questions, avoids others. - Additional findings Additional findings: Musculoskeletal - she has significant deformities in her fingers bilateral hands. No active swelling or joint tenderness or bogginess. Medical - PN: Obj Da - Labs CBC & Chem 7: 10/09/17 04:03 10/09/17 04:03 Labs: Abnormal Lab Results 10/09/17 10/09/17 10/08/17 04:03 04:03 12:21 RBC 3.99 L Hct Monocytes % (Manual) WBC Morphology Reactive Lymphocytes Toxic Granulation Sodium 127 L Chloride 95 L Anion Gap Glucose Osmolality Calcium Phosphorus 2.1 L CK-MB (CK-2) Urine Occult Blood Ur Leukocyte Esterase Urine RBC Urine WBC Ur Squamous Epith Cells 10/08/17 10/08/17 10/08/17 07:54 03:53 03:53 RBC 3.98 L Hct Monocytes % (Manual) WBC Morphology Abnorm A Reactive Lymphocytes Toxic Granulation 1+ A Sodium 128 L 127 L Chloride 90 L Anion Gap Glucose Osmolality Calcium 8.5 L Phosphorus CK-MB (CK-2) Urine Occult Blood Ur Leukocyte Esterase Urine RBC Urine WBC Ur Squamous Epith Cells 10/08/17 10/07/17 10/07/17 00:14 19:49 19:49 RBC Hct Monocytes % (Manual) WBC Morphology Reactive Lymphocytes Toxic Granulation Sodium 124 L 122 L Chloride 86 L Anion Gap Glucose 107 H Osmolality Calcium 8.4 L Phosphorus CK-MB (CK-2) 5.2 H Urine Occult Blood Ur Leukocyte Esterase Urine RBC Urine WBC Ur Squamous Epith Cells 10/07/17 10/07/17 10/07/17 16:00 12:19 08:02 RBC Hct Monocytes % (Manual) WBC Morphology Reactive Lymphocytes Toxic Granulation Sodium 120 L 118 L* 120 L Chloride Anion Gap Glucose Osmolality Calcium Phosphorus CK-MB (CK-2) Urine Occult Blood Ur Leukocyte Esterase Urine RBC Urine WBC Ur Squamous Epith Cells 10/07/17 10/07/17 10/07/17 03:54 03:54 00:16 RBC 3.78 L Hct 35.9 L Monocytes % (Manual) WBC Morphology Reactive Lymphocytes Toxic Granulation Sodium 116 L* 115 L* Chloride 80 L Anion Gap Glucose Osmolality Calcium 8.4 L Phosphorus CK-MB (CK-2) Urine Occult Blood Ur Leukocyte Esterase Urine RBC Urine WBC Ur Squamous Epith Cells 10/06/17 10/06/17 10/06/17 20:00 17:10 16:13 RBC Hct Monocytes % (Manual) WBC Morphology Reactive Lymphocytes Toxic Granulation Sodium 115 L* Chloride Anion Gap Glucose Osmolality 246 L Calcium Phosphorus CK-MB (CK-2) Urine Occult Blood 0.03 A Ur Leukocyte Esterase 500 A Urine RBC 11 H Urine WBC 117 H Ur Squamous Epith Cells 13 H 10/06/17 10/06/17 16:13 16:13 RBC Hct Monocytes % (Manual) 13 H WBC Morphology Reactive Lymphocytes 3 H Toxic Granulation Sodium 116 L* Chloride 76 L Anion Gap 18.0 H Glucose 109 H Osmolality Calcium Phosphorus CK-MB (CK-2) Urine Occult Blood Ur Leukocyte Esterase Urine RBC Urine WBC Ur Squamous Epith Cells Meds: Medications Acetaminophen (Tylenol) 650 mg PO Q4-6HP PRN PRN Reason: PAIN/FEVER > 101 Last Admin: 10/07/17 11:59 Dose: 650 mg Alprazolam (Xanax) 1 mg PO .COMPLEX [facility] Last Admin: 10/06/17 21:17 Dose: 1 mg Aspirin (Aspirin) 81 mg PO DAILY [facility] Last Admin: 10/09/17 09:46 Dose: 81 mg Ceftriaxone Sodium (Rocephin) 2 gm IV Q24H [facility] Last Admin: 10/09/17 09:46 Dose: 2 gm Docusate Sodium (Colace) 100 mg PO BID [facility] Last Admin: 10/09/17 09:31 Dose: Not Given Donepezil HCl (Aricept) 5 mg PO QHS [facility] Last Admin: 10/08/17 19:52 Dose: 5 mg Guaifenesin/Codeine Phosphate (Robitussin Ac) 10 ml PO Q4HP PRN PRN Reason: Cough Heparin Sodium (Porcine) (Heparin) 5,000 unit SQ Q12 [facility] Last Admin: 10/09/17 09:46 Dose: 5,000 unit Magnesium Sulfate (Magnesium Sulfate) 2 gm in 50 mls @ 50 mls/hr IV UD PRN PRN Reason: MG = or < 1.7 Last Infusion: 10/07/17 11:47 Dose: Infused Acetaminophen (Ofirmev) 1,000 mg in 100 mls @ 200 mls/hr IV Q6HP PRN PRN Reason: PAIN/FEVER > 101 Sodium Chloride (Sodium Chloride 0.9%) 1,000 mls @ 30 mls/hr IV .Q24H [facility] Last Admin: 10/08/17 11:30 Dose: 30 mls/hr Iron Carb/Multivit/[place]/Folic Acid (Multivitamin W/Minerals) 1 tab PO DAILY [facility] Last Admin: 10/09/17 09:46 Dose: 1 tab Latanoprost (Xalatan Ophth Drops) 1 gtt OU HS [facility] Last Admin: 10/08/17 21:45 Dose: 1 gtt Losartan Potassium (Cozaar) 100 mg PO DAILY [facility] Last Admin: 10/09/17 09:46 Dose: 100 mg Ondansetron HCl (Zofran) 4 mg IV Q4-6HP PRN PRN Reason: Nausea And Vomiting Last Admin: 10/07/17 15:15 Dose: 4 mg Lobetasol Propionate ([Cormax] Crm) 1 dose TOPICAL BIDP PRN PRN Reason: ITCHY [employer]ch + Lomb (Advanced Eye Relief) 1 dose BOTH EYES PRN PRN PRN Reason: Dry Eyes Last Admin: 10/08/17 16:03 Dose: 1 dose Potassium Chloride (Klor-Con) 40 meq PO DAILYP PRN PRN Reason: K+ < 3.5 Last Admin: 10/07/17 09:33 Dose: 40 meq Senna/Docusate Sodium (Senna Plus Tablet) 1 tab PO HS [facility] Last Admin: 05/25/18 19:58 Dose: Not Given Simvastatin (Zocor) 10 mg PO HS [facility] Last Admin: 10/08/17 19:52 Dose: 10 mg Sodium Chloride (Saline Flush) 10 ml IV Q8 [facility] Last Admin: 10/08/17 21:46 Dose: Not Given Sodium Chloride (Sodium Chloride) 1 gm PO TID [facility] Last Admin: 10/09/17 09:46 Dose: 1 gm Trazodone HCl (Desyrel) 50 mg PO HSP PRN PRN Reason: Insomnia Last Admin: 10/08/17 19:51 Dose: 50 mg Medical - PN: A/P - Time Spent With Patient Total time spent is greater than 50% in coordination of care (as documented) at patient's floor/unit and/or counseling patient: (1) Altered mental status, unspecified Status: Acute Assessment and plan: She is chronically on Aricept, so may have some acute worsening of chronic dementia with acute hospital stay and sodium correction. Will try to normalize her routine, move her out of ICU, discontinue fluids, decrease salt tablets, completely discontinue chlorthalidone, recheck labs in AM, and reevaluate her during the day. She may need more assistance in the home environment. Family aware. Current Visit: Yes (2) Hyponatremia with decreased serum osmolality Status: Resolved Assessment and plan: Much improved. Sodium today is 133 up from 127 yesterday. Would completely discontinue her thiazide diuretic, continue her losartan. Return to regular diet, decrease salt supplement and recheck tomorrow. Likely could have discharged were it not for abrupt change in mental status and behavior. Current Visit: Yes (3) Hypertension Problem details: Chronic Status: Chronic Assessment and plan: Losartan restarted this AM. Will permanently discontinue the chlorthalidone. Follow blood pressures, if necessary would restart another non-thiazide antihypertensive. May be able to remain in good control with just the Losartan. Current Visit: No Medical - PN: Qual - VTE Deep Vein Thrombosis/Pulmonary Embolism Present on Admission: No
[2017-10-09] MEDS ORDERED: ACETAMINOPHEN 325 MG TABLET PO PRN (13:08)
[2017-10-09] MEDS ORDERED: guaiFENesin/CODEINE 10 ML UDC PO PRN (13:08)
[2017-10-09] MEDS ORDERED: [UNRECOGNIZED DRUG - OTHER] BOTH EYES PRN (13:08)
[2017-10-09] MEDS ORDERED: traZODone HCL 50 MG TABLET PO PRN (13:08)
[2017-10-09] MEDS ORDERED: POTASSIUM CHLORIDE 20 MEQ PACKET PO PRN (13:08)
[2017-10-09] MEDS ORDERED: BAUSCH BOTH EYES PRN (13:08)
[2017-10-09] MEDS ORDERED: CLOBETASOL PROPIONATE TOPICAL PRN (13:08)
[2017-10-09] MEDS: 0.9 % SODIUM CHLORIDE 10 ML SYRINGE IV SCH ×3 (14:38→21:56)
[2017-10-09] MEDS ORDERED: ALPRAZolam 0.25 MG TABLET PO PRN (14:48)
[2017-10-09] MEDS ORDERED: DONEPEZIL 10 MG TABLET PO SCH (21:00)
[2017-10-09] MEDS ORDERED: SODIUM CHLORIDE 1 GM TABLET PO SCH (21:00)
[2017-10-09] MEDS: SENNOSIDES/DOCUSATE SODIUM 1 TAB TABLET PO SCH (21:55)
[2017-10-09] MEDS: SIMVASTATIN 10 MG TABLET PO SCH (21:56)
[2017-10-09] MEDS: LATANOPROST OPHTH DROPS 2.5ML BOTTLE OU SCH (21:56)
[2017-10-10] MEDS: 0.9 % SODIUM CHLORIDE 10 ML SYRINGE IV SCH ×3 (05:22→21:48)
[2017-10-10] MEDS: DOCUSATE SODIUM 100 MG CAPSULE PO SCH ×3 (07:43→20:59)
[2017-10-10] MEDS: ASPIRIN 81 MG TAB.CHEW PO SCH (07:43)
[2017-10-10] MEDS: LOSARTAN 50 MG TABLET PO SCH (07:43)
[2017-10-10] MEDS: HEPARIN 5,000 UNIT/ML VIAL SQ SCH ×2 (07:44→20:58)
[2017-10-10] MEDS: MULTIVIT,THER IRON,CA,FA & MIN 1 TABLET PO SCH (07:44)
[2017-10-10 08:02] LABS: Mean Cell Volume 95.1 fL (80.0-100.0); Mean Corpuscular HGB Conc 33.4 g/dL (31.0-36.0); Mean Corpuscular Hemoglobin 31.8 pg (26.0-34.0); Platelet Count 251 K/mcL (140-440); Red Cell Distribution Width 12.4 % (11.5-14.5)
[2017-10-10 08:23] LABS: ALT/SGPT 24 U/l (0-40); Albumin 4.6 gm/dL (3.2-5.2); Albumin/Globulin Ratio 1.4 (1.0-2.3); Alkaline Phosphatase 100 U/L (39-117); Bilirubin,Direct < 0.2 mg/dL (0.0-0.3); Blood Urea Nitrogen 7 mg/dl (8-23); Gamma Glutamyl Transpeptidase 26 U/L (5-36); Uric Acid 2.6 mg/dL (2.5-8.0)
[2017-10-10 08:42] LABS: Basophils % (Manual) 1 % (0-2); Lymphocytes % 11 % (15-49); Monocytes % (Manual) 4 % (1-12); Platelet Estimate NORMAL (NORMAL); RBC Morphology NORMAL (NORMAL); Segmented Neutrophils % 84 % (38-78)
[2017-10-10] MEDS ORDERED: cefTRIAXone 2 GM VIAL IV SCH (09:00)
[2017-10-10] MEDS ORDERED: SODIUM CHLORIDE 1 GM TABLET PO ONE (09:50)
--- NOTE | 2017-10-10 10:26 | Internal Med Progress Note ---
Medical - PN: Subj Patient information: Note initiated : 10/10/17 at 10:16 am Patient: Stephanie Mckeon a 82 y/o F admitted on 10/06/17 for Low Sodium, Bloated/ Euvolemic Hyponatremia. Interval history: REVIEWED DR. KAPLAN's NOTE: Ms. Mckeon is a 82 year old F who presents to [facility] ER with symptoms of increasing weakness, lower extremity cramps, headaches, abdominal bloating and confusion which has worsened over the last 24 hours. Patient has been fairly independent living alone. She is frequently visited by her son Ish and daughter eder. Per history patient has progressively gotten weaker over the last few days along with associated lower extremity cramps restricting her ability to perform ADLs. Patient was evaluated on 10/02 at urgent care due to increasing urinary frequency and dysuria. She was discharged on for UTI. Cultures revealed gram-positive cocci. However since discharge her symptoms have persisted with dysuria and increased frequency and associated weakness prompting her to return to ER today. She however denied associated fever cough headache photophobia, chest pain shortness of breath, rash, joint swelling . She has been slightly dizzy and lightheaded. Initial workup revealed sodium 116. Negative CT abdomen and pelvis chest. UA revealed pyuria. Hospitalist service consulted for admission evaluation in light of symptomatically hyponatremia. 10/07- patient doing well. No overnight events. No concerns per staff. Sodium at 116. Urine osmolarity greater than serum osmolarity suggestive of SIADH. Continue free water restriction/genital sodium replacement along with gentle diuresis. Sodium levels should correct over the next 6 hours with above measures. Negative CT abdomen chest pelvis for occult malignancy. Urinary outflow obstruction. Foleys catheter placed with over 1000 cc output. Will require outpatient urology follow-up to rule out urethral prolapse and outlet obstruction. No family at bedside. No overnight telemetry events. Continue 4 hourly sodium checks Patient had a brief episode of syncope. Likely vasovagal. Cardiac enzymes negative. EKG ST changes V2 V3, but on review with cardiology prior EKG 2016 and had similar changes. 10/08-patient doing better. Sodium up to 127. Continue free water restriction. 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 Transfer to medical floor. Possible discharge once sodium over 130 in 24 hours. Continue chlorthalidone on hold. Consider discontinuation to prevent future episodes of hyponatremia. No overnight fever chills. No family at bedside. No concerns per staff. No telemetry events except for intermittent PVCs END OF DR. KAPLAN's NOTE 10/09: Although labwork has improved (sodium is now 133), and vital signs have been stable, she has become more angry. Although not outwardly belligerent, she has refused breakfast or to get out of bed. Family has expressed concerns about her ability to care for herself at home. Patient tells me that she still drives, that she has some help managing her checkbook. She also tells me that she does all her own shopping and cooking. She is able to list most of her medications from memory (but will say "the water pill" instead of chlorthalidone ) - however, I am not sure if this level of independence is accurate. This represents a change in behavior from yesterday, and nurses reflect that as well. Subsequently, patient did improve somewhat, was up ambulating with the walker, ate without a problem. Would like to watch overnight before discharge; will decrease sodium tablets, recheck labs in AM, work with case management. 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 Her chlorthalidone has also been held due to concerns of concommitant effect. She had completely corrected yesterday, and I had felt that perhaps it was medication induced and there was a possibility she had stabilized. 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 She was on Bactrim prior to presentation in the ED, and that could have induced it; that was discontinued several days ago. Aricept is also a new medication, and is a less likely cause. She had chest/abdomen/pelvis CT's for malignancy evaluation - all of which were unremarkable. Hasn't yet had head imaging. Although no history of fall and no chronic anticoagulation, may be worth obtaining brain imaging. 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 Had long discussion with daughter today (30 minutes out of 45 minutes total patient visit) regarding plan. Patient today still with mood change (some "grumpy-ness"), but oriented. Daughter reports she likes a very set schedule at home and that even getting her medications here at a different time is throwing her "off". Patient herself voices no complaints today. - Constitutional Vitals: Vital Signs Temp Pulse Resp BP Pulse Ox 97 F 84 16 151/94 98 10/10/17 06:55 10/10/17 03:52 10/10/17 06:55 10/10/17 06:55 10/10/17 06:55 Period Temp Pulse Resp BP Sys/Douglas Pulse Ox Last 24 Hr 97 F-98.4 F 75-85 14-20 151-178/76-94 95-98 Intake and Output 10/09/17 10/10/17 10/10/17 21:59 05:59 13:59 Intake Total 300 / 300 Output Total 450 / 450 Balance -150 / -150 Weight 154 lb 8 oz Intake & Output: Intake & Output 10/09/17 10/10/17 10/10/17 21:59 05:59 13:59 Intake Total 300 / 300 Output Total 450 / 450 Balance -150 / -150 Weight 154 lb 8 oz Intake: Oral 300 / 300 Output: Void Amount 450 / 450 Other: Meal Dinner Percent of Meal Consumed 25% # Voids 1 1 - Additional findings Additional findings: GENERAL: Lying on her side in bed, respirations are unlabored. Answers questions appropriately, although reluctantly. When asked where she is, she notes she was "moved to room 114 from the ICU". HEENT: No facial asymmetry; pupils equal. LUNGS: Clear to bases bilaterally; no wheeze or crackles. COR: Regular rate and rhythm, no murmurs, rubs, gallops. EXT: No edema. NEURO: No tremor, digital strategist strength strong and equal. Knee jerks 1+ bilaterally, ankle jerks equivocal. Medical - PN: Obj Da - Labs CBC & Chem 7: 10/10/17 07:19 10/10/17 07:19 Labs: Abnormal Lab Results 10/10/17 10/10/17 10/09/17 07:19 07:19 04:03 RBC Seg Neutrophils % 84 H Lymphocytes % 11 L WBC Morphology Toxic Granulation Sodium 123 L Chloride 83 L 95 L BUN 7 L Glucose 124 H Calcium Phosphorus 2.1 L CK-MB (CK-2) 10/09/17 10/08/17 10/08/17 04:03 12:21 07:54 RBC 3.99 L Seg Neutrophils % Lymphocytes % WBC Morphology Toxic Granulation Sodium 127 L 128 L Chloride BUN Glucose Calcium Phosphorus CK-MB (CK-2) 10/08/17 10/08/17 10/08/17 03:53 03:53 00:14 RBC 3.98 L Seg Neutrophils % Lymphocytes % WBC Morphology Abnorm A Toxic Granulation 1+ A Sodium 127 L 124 L Chloride 90 L BUN Glucose Calcium 8.5 L Phosphorus CK-MB (CK-2) 10/07/17 10/07/17 10/07/17 19:49 19:49 16:00 RBC Seg Neutrophils % Lymphocytes % WBC Morphology Toxic Granulation Sodium 122 L 120 L Chloride 86 L BUN Glucose 107 H Calcium 8.4 L Phosphorus CK-MB (CK-2) 5.2 H 10/07/17 10/07/17 12:19 08:02 RBC Seg Neutrophils % Lymphocytes % WBC Morphology Toxic Granulation Sodium 118 L* 120 L Chloride BUN Glucose Calcium Phosphorus CK-MB (CK-2) Meds: Medications Acetaminophen (Tylenol) 650 mg PO Q4-6HP PRN PRN Reason: PAIN/FEVER > 101 Alprazolam (Xanax) 0.25 mg PO BIDP PRN PRN Reason: Anxiety Aspirin (Aspirin) 81 mg PO DAILY [facility] Last Admin: 10/10/17 07:43 Dose: 81 mg Docusate Sodium (Colace) 100 mg PO BID [facility] Last Admin: 10/10/17 07:59 Dose: Not Given Guaifenesin/Codeine Phosphate (Robitussin Ac) 10 ml PO Q4HP PRN PRN Reason: Cough Heparin Sodium (Porcine) (Heparin) 5,000 unit SQ Q12 [facility] Last Admin: 10/10/17 07:44 Dose: 5,000 unit Iron Carb/Multivit/Membership Sales Advisor/Folic Acid (Multivitamin W/Minerals) 1 tab PO DAILY [facility] Last Admin: 10/10/17 07:44 Dose: 1 tab Latanoprost (Xalatan Ophth Drops) 1 gtt OU HS [facility] Last Admin: 10/09/17 21:56 Dose: Not Given Losartan Potassium (Cozaar) 100 mg PO DAILY [facility] Last Admin: 10/10/17 07:43 Dose: 100 mg Bausch + Lomb (Advanced Eye Relief) 1 dose BOTH EYES PRN PRN PRN Reason: Dry Eyes Clobetasol Propionate [Cormax] Crm 1 dose TOPICAL BIDP PRN PRN Reason: ITCHY Potassium Chloride (Klor-Con) 40 meq PO DAILYP PRN PRN Reason: K+ < 3.5 Senna/Docusate Sodium (Senna Plus Tablet) 1 tab PO [facility] Last Admin: 10/09/17 21:55 Dose: Not Given Simvastatin (Zocor) 10 mg PO [facility] Last Admin: 10/09/17 21:56 Dose: Not Given Sodium Chloride (Saline Flush) 10 ml IV Q8 [facility] Last Admin: 10/10/17 05:22 Dose: Not Given Sodium Chloride (Sodium Chloride) 1 gm PO TID [facility] Medical - PN: A/P - Time Spent With Patient Total time spent is greater than 50% in coordination of care (as documented) at patient's floor/unit and/or counseling patient: discussion with family regarding status and plan. Greater than 35 minutes (1) Altered mental status, unspecified Status: Acute Assessment and plan: Seems better today; has been up walking, now wanting to sleep. Still suspect multi-factorial, including situational/environmental effect from hospital stay. Now essentially only on home medications with the additional discontinuation of chlorthalidone and Aricept. Although Bactrim stopped several days ago (at admission), still could have some SIADH from that with current sodium fluctuations affecting mood. It also appears mood is the biggest alteration, mentation seems close to baseline. Current Visit: Yes (2) Hyponatremia with decreased serum osmolality Status: Resolved Assessment and plan: Restriction was liberalized yesterday, with result of significant drop in sodium overnight. Appears still active SIADH, etiology unclear, but since she has been off Bactrim for several days, it does make it the less likely culprit. Will reinstate fluid restriction, restart salt tablets. Recheck sodium this evening. Obtain head CT with and without contrast to make sure there is no intracranial process (including subdural hematoma - although she has no fall history and is not on anticoagulation). May be a contributor to mood issues, but I suspect that is more related to hospital stay itself. Current Visit: Yes (3) Hypertension Problem details: Chronic Status: Chronic Assessment and plan: Losartan restarted yesterday AM. Will permanently discontinue the chlorthalidone. Blood pressure up a bit this AM at 151/94; will follow, if remains up, pulse shows room to initiate a beta nanci at low dose. Current Visit: No - Narrative A/P Narrative: Discussion re disposition with family. Patient has been quite independent at home - with mood issues, there are concerns expressed regarding return there. I talked with case management and they will look at whether patient would be appropriate for transitional care or swing bed. Of note, she is very clear on where she is, can list her medications, and is very solid and secure walking very briskly with a walker here (staff works to keep up with her). I stressed that she would need her sodium followed closely regardless. Medical - PN: Qual - VTE Deep Vein Thrombosis/Pulmonary Embolism Present on Admission: No
[2017-10-10] MEDS ORDERED: IOPAMIDOL 100 ML BOTTLE IV ONE (10:27)
--- NOTE | 2017-10-10 11:03 | Cat Scan Report ---
CLINICAL INFORMATION: Hyponatremia. Altered mental status. TECHNIQUE: Axial pre and postcontrast CT scan of the brain. 60 mL intravenous contrast material administered. COMPARISON: Brain CT scan dated 05/03/2008. MRI scan dated 01/07/2017 FINDINGS: No acute intracranial hemorrhage. No subdural hematoma. No subarachnoid hemorrhage. No intra-axial hematoma. There is severe white matter abnormality with low density throughout the periventricular and subcortical white matter of both cerebral hemispheres. Findings are consistent with small vessel ischemic change in this 82-year-old patient. No focal intra-axial abnormalities. No enhancing lesions. No localized mass effect. Brainstem and cerebellum are negative. No extra-axial, intracranial abnormality. No extra-axial mass. No pathologic leptomeningeal or dural enhancement. No calvarial lesions. No lytic lesion. Temporal bones are negative. Paranasal sinuses are negative. IMPRESSION: 1. Extensive white matter abnormality most consistent with small vessel ischemic change 2. No acute or focal abnormality. No enhancing lesions. Interpreted and Authenticated by: Mayur Mulligan 10/10/17
[2017-10-10] MEDS: SODIUM CHLORIDE 1 GM TABLET PO SCH ×2 (16:32→20:58)
[2017-10-10] MEDS: SIMVASTATIN 10 MG TABLET PO SCH (20:58)
[2017-10-10] MEDS: LATANOPROST OPHTH DROPS 2.5ML BOTTLE OU SCH (20:59)
[2017-10-10] MEDS: SENNOSIDES/DOCUSATE SODIUM 1 TAB TABLET PO SCH (21:00)
[2017-10-11] MEDS: 0.9 % SODIUM CHLORIDE 10 ML SYRINGE IV SCH ×3 (05:39→20:35)
[2017-10-11 06:01] LABS: Blood Urea Nitrogen 18 mg/dl (8-23)
[2017-10-11] MEDS: DOCUSATE SODIUM 100 MG CAPSULE PO SCH ×2 (09:55→20:31)
[2017-10-11] MEDS: HEPARIN 5,000 UNIT/ML VIAL SQ SCH ×2 (10:03→20:31)
[2017-10-11] MEDS: ASPIRIN 81 MG TAB.CHEW PO SCH (10:03)
[2017-10-11] MEDS: SODIUM CHLORIDE 1 GM TABLET PO SCH ×3 (10:03→20:32)
[2017-10-11] MEDS: MULTIVIT,THER IRON,CA,FA & MIN 1 TABLET PO SCH (10:03)
[2017-10-11] MEDS: LOSARTAN 50 MG TABLET PO SCH (10:03)
--- NOTE | 2017-10-11 15:17 | Internal Med Progress Note ---
Medical - PN: Subj Patient information: Note initiated : 10/11/17 at 3:14 pm Patient: Stephanie Mckeon a 82 y/o F admitted on 10/06/17 for Low Sodium, Bloated/ Euvolemic Hyponatremia. Interval history: REVIEWED DR. KAPLAN's NOTE: Ms. Mckeon is a 82 year old F who presents to [facility] ER with symptoms of increasing weakness, lower extremity cramps, headaches, abdominal bloating and confusion which has worsened over the last 24 hours. Patient has been fairly independent living alone. She is frequently visited by her son Ish and daughter eder. Per history patient has progressively gotten weaker over the last few days along with associated lower extremity cramps restricting her ability to perform ADLs. Patient was evaluated on 10/02 at urgent care due to increasing urinary frequency and dysuria. She was discharged on for UTI. Cultures revealed gram-positive cocci. However since discharge her symptoms have persisted with dysuria and increased frequency and associated weakness prompting her to return to ER today. She however denied associated fever cough headache photophobia, chest pain shortness of breath, rash, joint swelling . She has been slightly dizzy and lightheaded. Initial workup revealed sodium 116. Negative CT abdomen and pelvis chest. UA revealed pyuria. Hospitalist service consulted for admission evaluation in light of symptomatically hyponatremia. 10/07- patient doing well. No overnight events. No concerns per staff. Sodium at 116. Urine osmolarity greater than serum osmolarity suggestive of SIADH. Continue free water restriction/genital sodium replacement along with gentle diuresis. Sodium levels should correct over the next 6 hours with above measures. Negative CT abdomen chest pelvis for occult malignancy. Urinary outflow obstruction. Foleys catheter placed with over 1000 cc output. Will require outpatient urology follow-up to rule out urethral prolapse and outlet obstruction. No family at bedside. No overnight telemetry events. Continue 4 hourly sodium checks Patient had a brief episode of syncope. Likely vasovagal. Cardiac enzymes negative. EKG ST changes V2 V3, but on review with cardiology prior EKG 2016 and had similar changes. 10/08-patient doing better. Sodium up to 127. Continue free water restriction. 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 Transfer to medical floor. Possible discharge once sodium over 130 in 24 hours. Continue chlorthalidone on hold. Consider discontinuation to prevent future episodes of hyponatremia. No overnight fever chills. No family at bedside. No concerns per staff. No telemetry events except for intermittent PVCs END OF DR. KAPLAN's NOTE 10/09: Although labwork has improved (sodium is now 133), and vital signs have been stable, she has become more angry. Although not outwardly belligerent, she has refused breakfast or to get out of bed. Family has expressed concerns about her ability to care for herself at home. Patient tells me that she still drives, that she has some help managing her checkbook. She also tells me that she does all her own shopping and cooking. She is able to list most of her medications from memory (but will say "the water pill" instead of chlorthalidone ) - however, I am not sure if this level of independence is accurate. This represents a change in behavior from yesterday, and nurses reflect that as well. Subsequently, patient did improve somewhat, was up ambulating with the walker, ate without a problem. Would like to watch overnight before discharge; will decrease sodium tablets, recheck labs in AM, work with case management. 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 Her chlorthalidone has also been held due to concerns of concommitant effect. She had completely corrected yesterday, and I had felt that perhaps it was medication induced and there was a possibility she had stabilized. 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 She was on Bactrim prior to presentation in the ED, and that could have induced it; that was discontinued several days ago. Aricept is also a new medication, and is a less likely cause. She had chest/abdomen/pelvis CT's for malignancy evaluation - all of which were unremarkable. Hasn't yet had head imaging. Although no history of fall and no chronic anticoagulation, may be worth obtaining brain imaging. 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 Had long discussion with daughter today (30 minutes out of 45 minutes total patient visit) regarding plan. Patient today still with mood change (some "grumpy-ness"), but oriented. Daughter reports she likes a very set schedule at home and that even getting her medications here at a different time is throwing her "off". Patient herself voices no complaints today. 10/11: Has no complaints today other than she wants her coffee. More interactive , has been up walking, actively visiting with family. Notes she has an 8:15 appointment tomorrow with her primary provider and would like direction on what to do with that. I saw her at noon to evaluate her, subsequently returned just now and visited with both her and her son. Son notes plan is still for potential SNF discharge tomorrow. - Constitutional Vitals: Vital Signs Temp Pulse Resp BP Pulse Ox 98.1 F 77 16 152/80 96 10/11/17 11:50 10/11/17 04:00 10/11/17 11:50 10/11/17 11:50 10/11/17 11:50 Period Temp Pulse Resp BP Sys/Douglas Pulse Ox Last 24 Hr 97.4 F-98.1 F 75-88 16-18 123-160/67-90 95-99 Intake and Output 10/11/17 10/11/17 10/11/17 05:59 13:59 21:59 Intake Total 120 / 120 Balance 120 / 120 Intake & Output: Intake & Output 10/11/17 10/11/17 10/11/17 05:59 13:59 21:59 Intake Total 120 / 120 Balance 120 / 120 Intake: Oral 120 / 120 - Additional findings Additional findings: GENERAL: Lying in bed, sits up to side of bed without difficulty and without assistance. Answers questions appropriately, much more animated and interactive than yesterday. Oriented x 3. HEENT: No facial asymmetry; pupils equal. LUNGS: Clear to bases bilaterally; no wheeze or crackles. COR: Regular rate and rhythm, no murmurs, rubs, gallops. EXT: No edema. NEURO: No tremor, editor managing director strength strong and equal. Ambulation stable without assistive device. Medical - PN: Obj Da - Labs CBC & Chem 7: 10/10/17 07:19 10/11/17 03:56 Labs: Abnormal Lab Results 10/11/17 10/10/17 10/10/17 03:56 18:09 07:19 RBC Seg Neutrophils % Lymphocytes % Sodium 131 L 126 L 123 L Chloride 91 L 88 L 83 L BUN 7 L Glucose 106 H 124 H Phosphorus 10/10/17 10/09/17 10/09/17 07:19 04:03 04:03 RBC 3.99 L Seg Neutrophils % 84 H Lymphocytes % 11 L Sodium Chloride 95 L BUN Glucose Phosphorus 2.1 L Meds: Medications Acetaminophen (Tylenol) 650 mg PO Q4-6HP PRN PRN Reason: PAIN/FEVER > 101 Alprazolam (Xanax) 0.25 mg PO BIDP PRN PRN Reason: Anxiety Aspirin (Aspirin) 81 mg PO DAILY [facility] Last Admin: 10/11/17 10:03 Dose: 81 mg Docusate Sodium (Colace) 100 mg PO BID [facility] Last Admin: 10/11/17 09:55 Dose: Not Given Guaifenesin/Codeine Phosphate (Robitussin Ac) 10 ml PO Q4HP PRN PRN Reason: Cough Heparin Sodium (Porcine) (Heparin) 5,000 unit SQ Q12 [facility] Last Admin: 10/11/17 10:03 Dose: 5,000 unit Iron Carb/Multivit/Oscoda/Folic Acid (Multivitamin W/Minerals) 1 tab PO DAILY [facility] Last Admin: 10/11/17 10:03 Dose: 1 tab Latanoprost (Xalatan Ophth Drops) 1 gtt OU HS [facility] Last Admin: 10/10/17 20:59 Dose: 1 gtt Losartan Potassium (Cozaar) 100 mg PO DAILY [facility] Last Admin: 10/11/17 10:03 Dose: 100 mg Bausch + Lomb (Advanced Eye Relief) 1 dose BOTH EYES PRN PRN PRN Reason: Dry Eyes Clobetasol Propionate [Cormax] Crm 1 dose TOPICAL BIDP PRN PRN Reason: ITCHY Potassium Chloride (Klor-Con) 40 meq PO DAILYP PRN PRN Reason: K+ < 3.5 Senna/Docusate Sodium (Senna Plus Tablet) 1 tab PO HS [facility] Last Admin: 10/10/17 21:00 Dose: Not Given Simvastatin (Zocor) 10 mg PO HS [facility] Last Admin: 10/10/17 20:58 Dose: 10 mg Sodium Chloride (Saline Flush) 10 ml IV Q8 [facility] Last Admin: 10/11/17 05:39 Dose: Not Given Sodium Chloride (Sodium Chloride) 1 gm PO TID [facility] Last Admin: 10/11/17 10:03 Dose: 1 gm Medical - PN: A/P - Time Spent With Patient Total time spent is greater than 50% in coordination of care (as documented) at patient's floor/unit and/or counseling patient: (1) Altered mental status, unspecified Status: Acute Assessment and plan: Essentially at baseline with resolution of altered mental status. Likely related to hyponatremia, and then issues with sleep. Possible inciting medications have been discontinued. Current Visit: Yes (2) Hyponatremia with decreased serum osmolality Status: Resolved Assessment and plan: 10/10: Restriction was liberalized yesterday, with result of significant drop in sodium overnight. Appears still active SIADH, etiology unclear, but since she has been off Bactrim for several days, it does make it the less likely culprit. Will reinstate fluid restriction, restart salt tablets. Recheck sodium this evening. Obtain head CT with and without contrast to make sure there is no intracranial process (including subdural hematoma - although she has no fall history and is not on anticoagulation). May be a contributor to mood issues, but I suspect that is more related to hospital stay itself. 10/11: Sodium back to 131, patient doing well. Will continue free water (+ coffee / tea) restriction, sodium chloride supplementation at present dosing. Will also continue dc of both Trazadone and Aricept. I explained that this may resolve if it was medication induced (including by the pre-hospital Bactrim), and, at present, we have no other clear etiology. Head CT was negative for mass or bleed. Noted this will need to be followed as an outpatient or at SNF. Anticipate discharge tomorrow to SNF as planned. Current Visit: Yes (3) Hypertension Problem details: Chronic Status: Chronic Assessment and plan: Blood pressure has been creeping up at times, but other times (this AM, for instance), reflects good control. May be appropriate to discharge on monotherapy and have pressures monitored at SNF while she is engaged in more usual activities. Beta nanci might be reasonable choice for second medication. Would avoid thiazide diuretics given tendency to hyponatremia. Current Visit: No Medical - PN: Qual - VTE Deep Vein Thrombosis/Pulmonary Embolism Present on Admission: No
[2017-10-11] MEDS: SENNOSIDES/DOCUSATE SODIUM 1 TAB TABLET PO SCH (20:32)
[2017-10-11] MEDS: LATANOPROST OPHTH DROPS 2.5ML BOTTLE OU SCH (20:32)
[2017-10-11] MEDS: SIMVASTATIN 10 MG TABLET PO SCH (20:32)
[2017-10-12] MEDS: 0.9 % SODIUM CHLORIDE 10 ML SYRINGE IV SCH ×2 (05:21→15:20)
[2017-10-12 05:40] LABS: Blood Urea Nitrogen 25 mg/dl (8-23)
[2017-10-12] MEDS: HEPARIN 5,000 UNIT/ML VIAL SQ SCH (08:52)
[2017-10-12] MEDS: ASPIRIN 81 MG TAB.CHEW PO SCH (08:52)
[2017-10-12] MEDS: MULTIVIT,THER IRON,CA,FA & MIN 1 TABLET PO SCH (08:52)
[2017-10-12] MEDS: SODIUM CHLORIDE 1 GM TABLET PO SCH ×2 (08:52→15:20)
[2017-10-12] MEDS: LOSARTAN 50 MG TABLET PO SCH (08:52)
[2017-10-12] MEDS: DOCUSATE SODIUM 100 MG CAPSULE PO SCH (08:53)
[2017-10-12] MEDS ORDERED: METOPROLOL TARTRATE 25 MG TABLET PO SCH (09:00)
--- NOTE | 2017-10-12 11:27 | Discharge Summary ---
Medical - DS: Prov Patient information: Note initiated : 10/12/17 at 11:24 am Patient: Stephanie Mckeon 82 y/o F admitted on 10/06/17 for Low Sodium, Bloated/ Euvolemic Hyponatremia. Date of admission: 10/06/17 18:26 Discharge date: 10/12/17 Primary care physician: Michael Matthews Admitting clinician: Eliel Wilson Attending physician on admission: Eliel Wilson Consults: 10/06/17 17:25 Consult to Physician [CONS] Routine Comment: Consulting Provider: Eliel Wilson Reason For Exam: Physician to Consult Attending physician on discharge: Paloma Beck Discharging clinician: Paloma Beck Medical - DS: Meds - Discharge Medications Prescriptions: ALPRAZolam [Xanax] See Dose Instructions PO .COMPLEX #7 tab Metoprolol Tartrate [Lopressor] 12.5 mg PO BID #30 tab Sodium Chloride 1 gm PO BID #60 tab Active and Home Medications: Home Medications clobetasol 0.05 % scalp solution 1 applic TOPICAL BIDP PRN 05/03/15 [History Confirmed 10/06/17 Last Taken 09/16/15] Flaxseed Oil [Flax Seed Oil] 2,000 mg PO QPMCC 09/12/15 [History Confirmed 10/06 Last Taken 09/16/15 17:00] clotrimazole-betamethasone 1 %-0.05 % topical cream 1 applic TOPICAL BID #15 g 07/06/16 [Rx Confirmed 10/06/17 Last Taken Unknown] aspirin 81 mg tablet,delayed release 81 mg PO QDAY 05/12/17 [History Confirmed 10/06/17 Last Taken Unknown] latanoprost 0.005 % eye drops 1 drp OPHTHALMIC QDAY 05/12/17 [History Confirmed 10/06/17 Last Taken Unknown] irbesartan 300 mg tablet 300 mg PO QDAY #90 tab 08/24/17 [Rx Confirmed 10/06/17 Last Taken Unknown] pravastatin 20 mg tablet 20 mg PO QHS #60 tab 10/06/17 [Rx Confirmed 10/06/17 Last Taken Unknown] ALPRAZolam [Xanax] See Dose Instructions PO .COMPLEX #7 tab 10/12/17 [Rx Last Taken Unknown] Acetaminophen [Tylenol] 650 mg PO Q4-6HP PRN tablet 10/12/17 [Rx Last Taken Unknown] Sodium Chloride 1 gm PO BID #60 tab 10/12/17 [Rx Last Taken Unknown] Medical - DS: Hosp Hospital course: Mr. Mckeon is a 82 year old F admitted with confusion and hypoosmolar hyponatremia, determined to be due to SIADH. Evaluation failed to disclose clear etiology of SIADH, although she had been recently on Bactrim. She also had recently been started on Aricept. For detailed admission history and physical, please see Dr. Wilson's admission note. In brief: Ms. Mckeon is a 82 year old F who presents to [facility] ER with symptoms of increasing weakness, lower extremity cramps, headaches, abdominal bloating and confusion which has worsened over the last 24 hours. Patient has been fairly independent living alone. She is frequently visited by her son Ish and daughter eder. Per history patient has progressively gotten weaker over the last few days along with associated lower extremity cramps restricting her ability to perform ADLs. Patient was evaluated on 10/02 at urgent care due to increasing urinary frequency and dysuria. She was discharged on for UTI. Cultures revealed gram-positive cocci. However since discharge her symptoms have persisted with dysuria and increased frequency and associated weakness prompting her to return to ER today. She however denied associated fever cough headache photophobia, chest pain shortness of breath, rash, joint swelling . She has been slightly dizzy and lightheaded. Initial workup revealed sodium 116. Negative CT abdomen and pelvis and chest. UA revealed pyuria. 10/07- patient doing well. No overnight events. No concerns per staff. Sodium at 116. Urine osmolarity greater than serum osmolarity suggestive of SIADH. Continue free water restriction/genital sodium replacement along with gentle diuresis. Sodium levels should correct over the next 6 hours with above measures. Negative CT abdomen chest pelvis for occult malignancy. Urinary outflow obstruction. Foleys catheter placed with over 1000 cc output. Will require outpatient urology follow-up to rule out urethral prolapse and outlet obstruction. No family at bedside. No overnight telemetry events. Continue 4 hourly sodium checks Patient had a brief episode of syncope. Likely vasovagal. Cardiac enzymes negative. EKG ST changes V2 V3, but on review with cardiology prior EKG 2016 and had similar changes. 10/08-patient doing better. Sodium up to 127. Continue free water restriction. 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 Transfer to medical floor. Possible discharge once sodium over 130 in 24 hours. Continue chlorthalidone on hold. Consider discontinuation to prevent future episodes of hyponatremia. No overnight fever chills. No family at bedside. No concerns per staff. No telemetry events except for intermittent PVCs 10/09 - Although labwork has improved (sodium is now 133), and vital signs have been stable, she has become more angry. Although not outwardly belligerent, she has refused breakfast or to get out of bed. Family has expressed concerns regarding new mental status changes. Given abrupt increase in sodium, felt that perhaps etiology of SIADH had resolved (particularly if due to the Bactrim she had been on previously). Fluid restriction liberalized, salt tablets decreased. Also moved patient out of ICU into room where she could rest better. Deferred discharge due to new changes. She was ambulating well, working with PT. Discontinued Aricept, Trazadone. Also feel that chlorthalidone should be permanently discontinued and if she becomes hypertense add small dose beta nanci to her ARB. 10/10 - Mental status much improved, family noted acting like usual self, however , sodium dropped abruptly to 123. Limitation on free water and salt tablets reinstated. Due to tenuous status, SNF at discharge explored for PT, monitoring of fluid intake, sodium checks, making sure she could maintain her ADL's at home. Discussed with family that sodium will need to be followed for several weeks as still might clear. Her urine culture grew out only mixed gram negative veronique, and the Rocephin was discontinued (she had had adequate treatment for UTI at this time as well.) Head CT checked to rule out intracranial etiology of SIADH and was negative. 10/11 - Blood pressure up in 150-160 systolic fairly consistently. Started metoprolol at 12.5 mg twice daily. Sodium is 135; opted to allow one cup coffee per day and decreased oral salt tablets to 1 gram twice daily. Ready for discharge to SNF. Discharge diagnosis: SIADH - etiology unclear. Secondary discharge diagnosis: Hypertension Early dementia Presumptive UTI; culture mixed veronique only. Recent use of Bactrim; possible contributor to SIADH - Time Spent with Patient Total time spent providing and/or coordinating discharge services: Greater than 30 minutes Medical - DS: Exam - Constitutional Vitals: Vital Signs Temp Pulse Resp BP BP Pulse Ox 05/29/18 11:12 97.9 F 73 20 144/74 94 10/12/17 07:38 98.1 F 16 148/77 95 10/12/17 04:00 98.3 F 77 20 149/80 97 10/12/17 00:00 98.2 F 60 20 161/80 98 10/11/17 20:00 98.0 F 77 20 124/70 96 10/11/17 16:15 98 F 16 127/79 98 10/11/17 11:50 98.1 F 16 152/80 96 Intake and Output 10/11/17 10/12/17 10/12/17 21:59 05:59 13:59 Intake Total 120 / 120 240 / 240 Output Total 200 / 200 Balance -200 / -200 120 / 120 240 / 240 Intake: Oral 120 / 120 240 / 240 Output: Void Amount 200 / 200 Other: Meal Dinner Breakfast Percent of Meal Consumed 100% 100% Feeding Ability Independent # Voids 1 1 # Bowel Movements 1 Weight 153 lb - Other Additional findings: GENERAL: Lying in bed, sits up to side of bed without difficulty and without assistance. Answers questions appropriately. No complaints. Oriented x 3. HEENT: No facial asymmetry; pupils equal. LUNGS: Clear to bases bilaterally; no wheeze or crackles. COR: Regular rate and rhythm, no murmurs, rubs, gallops. EXT: No edema. Warm. Pulses x4 NEURO: No tremor, verifying specialist strength strong and equal. Ambulation stable, uses cane when she goes out at home, has moved in room independently; has used walker in alejandro here when she initially worked with PT. Medical - DS: Data Labs on day of discharge: Labs from last 24 hours 10/12/17 03:50 Sodium 135 Potassium 4.1 Chloride 96 Carbon Dioxide 25 Anion Gap 14.0 BUN 25 H Creatinine 0.8 GFR Calculation 70 Glucose 110 H Calcium 9.2 Medical - DS: A/P - Patient/Caregiver Discharge Instructions Activity: as per physical therapy, increase activity as tolerated Diet: Regular Diet Additional Instructions: Limit coffee to one cup per day. No free water, additional coffee, or tea. Broth, juices are okay. Prescriptions: ALPRAZolam [Xanax] See Dose Instructions PO .COMPLEX #7 tab Metoprolol Tartrate [Lopressor] 12.5 mg PO BID #30 tab Sodium Chloride 1 gm PO BID #60 tab Other Amb Orders: OT Discharge Order Location: Determined By Patient Physical Therapy at Discharge - General Location: Determined By Patient Basic Metabolic Panel Location: Determined By Patient - Follow up Plan Follow up with: Tito Matthews MD [Primary Care Provider] - 10/19/17 Ramon Underwood MD [Physician] - Disposition: Xfer SNF Prognosis: Good Rehab Potential: Good I certify that the patient requires SNF services: Yes Overall status at discharge: patient is progressing back to baseline Medical - DS: Qual - VTE Deep Vein Thrombosis/Pulmonary Embolism Present on Admission: No
== END 2017-10-12 15:00 | DRG 644 ==
LOC: ED 15:44 → ICU 18:26 → MEDSUR 10-09 14:10
PROVIDERS: ADMIT Internal Medicine; ATTEND Internal Medicine

== ENCOUNTER 2023-03-16 11:37 | Inpatient (IN) ==
[2023-03-16 12:05] LABS: POC Calcium, Ionized 1.23 (1.16-1.32); POC Creatinine 0.7 (0.6-1.2); POC Potassium 3.6 (3.3-5.1)
[2023-03-16] MEDS ORDERED: 0.9 % SODIUM CHLORIDE 500 ML IV ONE (12:06)
[2023-03-16 12:37] LABS: Basophils # (Auto) 0.03 K/mcL (0.00-0.30); Basophils % (Auto) 0.5 % (0.0-2.0); Eosinophils # (Auto) 0.12 K/mcL (0.00-0.70); Eosinophils % (Auto) 1.9 % (0.0-7.0); Hematocrit 37.3 % (34.1-44.9); Lymphocytes # (Auto) 1.29 K/mcL (1.50-4.80); Lymphocytes % (Auto) 20.3 % (15.5-49.0); Mean Cell Volume 88.6 fL (80.0-100.0); Mean Corpuscular HGB Conc 34.9 g/dL (31.0-36.0); Mean Platelet Volume 9.6 fL (8.8-12.5); Monocytes # (Auto) 0.62 K/mcL (0.10-0.90); Monocytes % (Auto) 9.8 % (1.0-12.0); Neutrophils % (Auto) 67.2 % (38.0-78.0); Platelet Count 226 K/mcL (140-440); RBC 4.21 M/mcL (3.59-5.38); Red Cell Distribution Width 13.3 % (11.5-14.5); WBC 6.3 K/mcL (4.5-11.0)
[2023-03-16 12:55] LABS: ALT/SGPT 14 U/L (<40); AST/SGOT 19 U/L (<32); Albumin 4.3 gm/dL (3.2-5.2); Alkaline Phosphatase 113 U/L (39-117); Bilirubin,Direct < 0.2 mg/dL (0-0.3); Bilirubin,Total 0.8 mg/dL (0.1-1.0); Globulin 2.5 gm/dL (2.2-3.7)
[2023-03-16 13:06] LABS: Thyroid Stimulating Hormone 3.24 uIU/mL (0.27-5.01)
[2023-03-16 14:19] LABS: Appearance,Urine HAZY (Clear); Bacteria,Urine FEW /hpf (0); Bilirubin,Urine Negative (Negative); Color,Urine YELLOW; Culture Indicated,Urine Yes; Glucose,Urine (UA) Negative (Negative); Ketones,Urine Negative (Negative); Leukocyte Esterase,Urine 500 /uL (Negative); Mucus,Urine FEW /hpf; Nitrate,Urine Negative (Negative); Protein,Urine Negative (Negative); Specific Gravity,Urine 1.008 (1.000-1.035); Urine Blood Negative (Negative); Urine RBC 7 /hpf (0-3); Urine Squamous Epithelial Cell 5 /hpf (0-4); Urine WBC 19 /hpf (0-4); Urobilinogen,Urine Negative
[2023-03-16] MEDS ORDERED: cefTRIAXone 1 GM VIAL IV ONE (14:56)
[2023-03-16] MEDS ORDERED: POTASSIUM CHLORIDE 40 MEQ in DEXTROSE 5% IN WATER 500 ML IV PRN (17:16)
[2023-03-16] MEDS ORDERED: MAGNESIUM SULFATE 2 GM/50 ML BAG IV PRN (17:16)
[2023-03-16] MEDS ORDERED: cefTRIAXone 1 GM in DEXTROSE 5% IN WATER 50 ML IV SCH (17:16)
[2023-03-16] MEDS ORDERED: ALPRAZolam 0.5 MG TABLET PO PRN (17:16)
[2023-03-16] MEDS ORDERED: 0.9 % SODIUM CHLORIDE 1,000 ML IV SCH (17:16)
[2023-03-16] MEDS ORDERED: ONDANSETRON 4 MG/2 ML VIAL IV PRN (17:16)
[2023-03-16] MEDS ORDERED: POLYETHYLENE GLYCOL 3350 17 GM PACKET PO PRN (17:16)
[2023-03-16] MEDS ORDERED: POTASSIUM CHLORIDE 20 MEQ TABLET PO PRN ×2 (17:16)
[2023-03-16] MEDS ORDERED: LABETALOL HCL 20 MG/4 ML VIAL IV PRN (17:16)
[2023-03-16] MEDS ORDERED: ACETAMINOPHEN 325 MG TABLET PO PRN (17:16)
[2023-03-16] MEDS ORDERED: IPRATROPIUM/ALBUTEROL 3 ML AMPUL.NEB NEB PRN (17:16)
[2023-03-16] MEDS ORDERED: SENNOSIDES 1 TABLET PO PRN (17:16)
[2023-03-16] MEDS: amLODIPine 5 MG TABLET PO SCH (17:46)
[2023-03-16] MEDS: LOSARTAN 50 MG TABLET PO SCH (17:46)
[2023-03-16] MEDS: METOPROLOL SUCCINATE 25 MG TAB.XL.24H PO SCH (17:47)
[2023-03-16 19:20] LABS: Blood Urea Nitrogen 15 mg/dL (8-23); Calcium 9.4 mg/dL (8.6-10.4); Carbon Dioxide 25 mmol/L (22-30); Chloride 91 mmol/L (96-108); Glomerular Filtration Rate 83; Glucose 100 mg/dL (70-105)
[2023-03-16] MEDS: ATORVASTATIN 10 MG TABLET PO SCH (20:52)
[2023-03-16] MEDS: DOCUSATE SODIUM 100 MG CAPSULE PO SCH (20:53)
[2023-03-16] MEDS: MELATONIN 3 MG TABLET PO SCH (20:54)
[2023-03-16] MEDS ORDERED: OLANZapine 5 MG TABLET PO PRN (21:00)
[2023-03-16] MEDS ORDERED: ALPRAZolam 0.25 MG TABLET PO PRN (21:00)
[2023-03-16] MEDS: 0.9 % SODIUM CHLORIDE 10 ML SYRINGE IV SCH (22:34)
[2023-03-17] MEDS: 0.9 % SODIUM CHLORIDE 10 ML SYRINGE IV SCH ×3 (05:59→20:34)
[2023-03-17 06:53] LABS: ALT/SGPT 12 U/L (<40); AST/SGOT 16 U/L (<32); Albumin 3.6 gm/dL (3.2-5.2); Albumin/Globulin Ratio 1.6 (1.0-2.3); Alkaline Phosphatase 100 U/L (39-117); Bilirubin,Direct < 0.2 mg/dL (0-0.3); Bilirubin,Total 0.6 mg/dL (0.1-1.0); Blood Urea Nitrogen 12 mg/dL (8-23); Calcium 8.8 mg/dL (8.6-10.4); Carbon Dioxide 26 mmol/L (22-30); Chloride 96 mmol/L (96-108); Globulin 2.3 gm/dL (2.2-3.7); Glomerular Filtration Rate 83; Glucose 94 mg/dL (70-105); Lactate Dehydrogenase 148 U/L (135-225); Phosphorous 3.3 mg/dL (2.5-4.5); Triglycerides 33 mg/dL (<150); Uric Acid 3.3 mg/dL (2.5-8.0)
[2023-03-17] MEDS: amLODIPine 5 MG TABLET PO SCH (08:07)
[2023-03-17] MEDS: ENOXAPARIN 40 MG/0.4 ML SYRINGE SQ SCH (08:07)
[2023-03-17] MEDS: LOSARTAN 50 MG TABLET PO SCH (08:07)
[2023-03-17] MEDS: ASPIRIN 81 MG TAB.CHEW PO SCH (08:08)
[2023-03-17] MEDS: DOCUSATE SODIUM 100 MG CAPSULE PO SCH ×2 (08:08→20:33)
[2023-03-17] MEDS: cefTRIAXone 1 GM VIAL IV SCH (08:08)
[2023-03-17] MEDS: METOPROLOL SUCCINATE 25 MG TAB.XL.24H PO SCH (08:12)
[2023-03-17] MEDS: LATANOPROST OPHTH DROPS 2.5ML BOTTLE OU SCH (08:13)
[2023-03-17] MEDS: ATORVASTATIN 10 MG TABLET PO SCH (20:33)
[2023-03-17] MEDS: MELATONIN 3 MG TABLET PO SCH (20:33)
[2023-03-18] MEDS: 0.9 % SODIUM CHLORIDE 10 ML SYRINGE IV SCH ×3 (05:44→20:02)
[2023-03-18 07:25] LABS: Blood Urea Nitrogen 16 mg/dL (8-23); Calcium 8.7 mg/dL (8.6-10.4); Carbon Dioxide 24 mmol/L (22-30); Chloride 96 mmol/L (96-108); Glomerular Filtration Rate 83; Glucose 103 mg/dL (70-105)
[2023-03-18] MEDS: METOPROLOL SUCCINATE 25 MG TAB.XL.24H PO SCH (08:28)
[2023-03-18] MEDS: DOCUSATE SODIUM 100 MG CAPSULE PO SCH ×2 (08:29→20:03)
[2023-03-18] MEDS: amLODIPine 5 MG TABLET PO SCH (08:29)
[2023-03-18] MEDS: cefTRIAXone 1 GM VIAL IV SCH (08:29)
[2023-03-18] MEDS: LOSARTAN 50 MG TABLET PO SCH (08:29)
[2023-03-18] MEDS: ENOXAPARIN 40 MG/0.4 ML SYRINGE SQ SCH (08:29)
[2023-03-18] MEDS: ASPIRIN 81 MG TAB.CHEW PO SCH (08:29)
[2023-03-18] MEDS: LATANOPROST OPHTH DROPS 2.5ML BOTTLE OU SCH (08:29)
[2023-03-18] MEDS: ATORVASTATIN 10 MG TABLET PO SCH (20:03)
[2023-03-18] MEDS: MELATONIN 3 MG TABLET PO SCH (20:03)
[2023-03-19] MEDS: 0.9 % SODIUM CHLORIDE 10 ML SYRINGE IV SCH (05:45)
[2023-03-19] MEDS: ENOXAPARIN 40 MG/0.4 ML SYRINGE SQ SCH (08:24)
[2023-03-19] MEDS: METOPROLOL SUCCINATE 25 MG TAB.XL.24H PO SCH (08:25)
[2023-03-19] MEDS: LOSARTAN 50 MG TABLET PO SCH (08:25)
[2023-03-19] MEDS: DOCUSATE SODIUM 100 MG CAPSULE PO SCH (08:26)
[2023-03-19] MEDS: ASPIRIN 81 MG TAB.CHEW PO SCH (08:26)
[2023-03-19] MEDS: amLODIPine 5 MG TABLET PO SCH (08:26)
[2023-03-19] MEDS: cefTRIAXone 1 GM VIAL IV SCH (08:26)
[2023-03-19] MEDS: LATANOPROST OPHTH DROPS 2.5ML BOTTLE OU SCH (08:26)
== END 2023-03-19 12:30 | DRG 71 ==
LOC: ED 11:37 → MEDSUR 17:14
PROVIDERS: ADMIT Internal Medicine; ATTEND Internal Medicine